=== PATIENT | male | born 1955 | race Caucasian/White ===

== ENCOUNTER 2016-12-21 11:16 | Inpatient (IN) | payer BC ==
[~2016-12-21] VITALS: Ht 177.8 cm; Wt 68.4 kg
[2016-12-21] MEDS ORDERED: SOD CHLORIDE 0.9% 500 ML IV STA (11:23)
[2016-12-21] MEDS ORDERED: ESOM40CA G-TUBE (11:40)
[2016-12-21] MEDS ORDERED: FAMO20TA18 GTB (11:41)
[2016-12-21] MEDS ORDERED: UDREG GTB (11:42)
[2016-12-21] MEDS ORDERED: LEVE500S9 GTB (11:42)
[2016-12-21] MEDS ORDERED: PROP40TA4 GTB (11:43)
[2016-12-21] MEDS ORDERED: LANT3I SC (11:43)
[2016-12-21] MEDS ORDERED: ZINC220C5 GTB (11:44)
[2016-12-21] MEDS ORDERED: ASCO500S2 GTB (11:44)
[2016-12-21] MEDS ORDERED: PHEN100O4 GTB (11:45)
--- NOTE | 2016-12-21 11:45 | ERA ---
ER Documentation Chief Complaint Date/Time DATE: 12/21/16 TIME: 11:31 Chief Complaint HPI 61-year-old male with a history of anoxic brain injury with chronic respiratory failure, trach and vent dependent, CKD, seizure disorder, diabetes, hypothyroidism sent from [facility] for elevated BUN and creatinine. The patient was evaluated at [facility] yesterday and discharged back to the facility. Due to his worsening BUN and creatinine elevation, he was sent here for further evaluation and admission. His primary care doctors are Dr. Bojorquez and Armando. The patient is nonverbal and is unable to give any further history. The history is taken from his EMS personnel , medical records and transfer summary. Per review of his records, his BUN was 106 and creatinine was 2.6. Earlier yesterday, his BUN was 100 and his creatinine was 2.2. He was also noted to have evidence of a UTI and started on Macrobid yesterday. Renal ultrasound was done and was unremarkable. ROS Review of systems are limited as the patient is nonverbal. Medications Home Meds Reported Medications Amino Acids/Protein Hydrolys (PRO-STAT LIQUID) 30 Ml Liquid.pkt, 30 ML GTB BID SUGAR FREE 12/21/16 Hydrocodone/Acetaminophen (Ravia 5-325 Tablet) 1 Each Tablet, 1 EACH GTB Q4H WHILE AWAKE Y for PAIN, TAB 12/21/16 Acetaminophen* (Acetaminophen* Susp) 160 Mg/5 Ml Oral.susp, 640 MG PO Q6 Y for PAIN AND OR ELEVATED TEMP, ML 12/21/16 Furosemide* (Lasix*) 20 Mg Tablet, 20 MG GTB DAILY, TAB 12/21/16 Folic Acid/Vitamin B Comp W-C (Nephrocaps Capsule) 1 Mg Capsule, 1 MG GTB DAILY , CAP 12/21/16 Prochlorperazine* (Prochlorperazine*) 5 Mg Tablet, 5 MG GTB Q6 Y for NAUSEA, TAB 12/21/16 Levothyroxine Sodium* (Levoxyl*) 25 Mcg Tablet, 25 MCG G-TUBE BEFORE BREAKFAST, #30 TAB 12/21/16 Arginine/Ascorbate Sod/Mis AC (Arginaid Powder) 1 Each Powd.pack, 1 EACH PO BID 12/21/16 Phenytoin* (Dilantin* Susp) 100 Mg/4 Ml Oral.susp, 300 MG GTB DAILY for 30 Days , BOTTLE 12/21/16 Zinc Sulfate* (Zinc Sulfate*) 220 Mg Cap, 220 MG GTB DAILY, CAP 12/21/16 Ascorbic Acid* (Vitamin C* Liq) 500 Mg/5 Ml Syrup, 500 MG GTB DAILY, ML 12/21/16 Insulin Glargine* (Lantus*) 100 Unit/Ml Soln, 18 UNIT SC QHS, #1 VIAL 12/21/16 Propranolol Hcl* (Propranolol Hcl*) 40 Mg Tablet, 40 MG GTB TID, TAB 12/21/16 Metoclopramide* (Reglan*) 10 Mg/10 Ml Soln, 5 MG GTB Q6, ML 12/21/16 Levetiracetam* (Keppra*) 500 Mg/5 Ml Solution, 500 MG GTB BID, BOTTLE 12/21/16 Famotidine* (Famotidine*) 20 Mg Tablet, 20 MG GTB DAILY, #30 TAB 12/21/16 Esomeprazole Mag Trihydrate (Nexium) 40 Mg Capsule.dr, 40 MG G-TUBE DAILY, #30 CAP 12/21/16 Allergies Allergies: Coded Allergies: No Known Allergy (Unverified , 12/21/16) PMhx/Soc History of Surgery: Yes (Tracheostomy placement, G-tube placement) Hx Neurological Disorder: Yes (Anoxic brain injury, convulsions) Hx Respiratory Disorders: Yes (Chronic respiratory failure with tracheostomy on vent) Hx Miscellaneous Medical Probl: Yes (Diabetes, hypothyroidism, CKD) Hx Substance Use: No Smoking Status: Former smoker FmHx Unable to obtain Physical Exam Vitals Vital Signs Date Time Temp Pulse Resp B/P Pulse Ox O2 Delivery O2 Flow Rate FiO2 12/21/16 16:25 98.1 108 12 152/84 100 Room Air 12/21/16 14:04 99.2 106 16 149/84 100 Room Air 12/21/16 12:30 108 23 130/78 100 Mechanical Ventilator 12/21/16 11:28 119 26 100 30 12/21/16 11:25 99.1 118 16 120/76 100 Physical Exam Const: No apparent distress, nonverbal, nontoxic Head: Atraumatic Eyes: Normal Conjunctiva ENT: Normal External Ears, Nose and Mouth. Neck: tracheostomy in place, on vent Resp: Clear to auscultation bilaterally, transmitted upper respiratory coarse sounds present Cardio: tachycardic, regular rhythm, no murmurs Abd: Soft, non tender, non distended. Normal bowel sounds Skin: No petechiae or rashes Back: NO lesions Ext: No cyanosis or edema. Muscle atrophy in all 4 extremities Neur: Awake, alert, nonverbal, does not follow commands Result Diagram: 12/21/16 1145 12/21/16 1145 Results 24 hrs Laboratory Tests Test 12/21/16 11:45 12/21/16 12:50 12/21/16 13:50 Activated Partial Thromboplast Time 32.8Sec Alanine Aminotransferase (ALT/SGPT) 77IU/L Albumin 3.6g/dl Albumin/Globulin Ratio 1.02 Alkaline Phosphatase 119IU/L Anion Gap 23 Aspartate Amino Transf (AST/SGOT) 46IU/L Basophils # 0.010^3/ul Basophils % 0.3% Blood Morphology Comment Blood Urea Nitrogen 104mg/dl Calcium Level 10.6mg/dl Carbon Dioxide Level 22mmol/L Chloride Level 112mmol/L Creatinine 2.21mg/dl Direct Bilirubin 0.00mg/dl Eosinophils # 0.610^3/ul Eosinophils % 4.5% Globulin 3.50g/dl Glucose Level 133mg/dl Hematocrit 27.9% Hemoglobin 9.4g/dl INR International Normalized Ratio 1.18 Indirect Bilirubin 0.1mg/dl Lactic Acid Level 2.3mmol/L 3.0mmol/L Lymphocytes # 1.510^3/ul Lymphocytes % 10.6% Mean Corpuscular Hemoglobin 31.1pg Mean Corpuscular Hemoglobin Concent 33.8g/dl Mean Corpuscular Volume 91.9fl Mean Platelet Volume 10.9fl Monocytes # 1.210^3/ul Monocytes % 8.7% Neutrophils # 10.610^3/ul Neutrophils % 75.9% Nucleated Red Blood Cells # 0.010^3/ul Nucleated Red Blood Cells % 0.0/100WBC Platelet Count 89542^3/UL Potassium Level 4.5mmol/L Prothrombin Time 15.1Sec Prothrombin Time Ratio 1.2 Red Blood Count 3.0310^6/ul Red Cell Distribution Width 16.6% Sodium Level 152mmol/L Total Bilirubin 0.1mg/dl Total Protein 7.1g/dl White Blood Count 14.010^3/ul Urine Bilirubin NEGATIVE Urine Clarity HAZY Urine Color LT. YELLOW Urine Glucose NEGATIVE% Urine Hemoglobin 3+ Urine Ketones NEGATIVE Urine Leukocyte Esterase 1+ Urine Microscopic RBC 10-25/HPF Urine Microscopic WBC 5-10/HPF Urine Nitrite NEGATIVE Urine Specific [place] 1.010 Urine Total Protein 2+ Urine Urobilinogen 0.2 E.U./dL Urine pH 7.0 Troponin I < 0.012ng/ml Current Medications Medications (Trade) Dose Ordered Sig/Linda Route PRN Reason Start Time Stop Time Status Last Admin Dose Admin Sodium Chloride (NS) 500 ml @ 500 mls/hr Q1H STAT IV 12/21/16 11:23 12/21/16 11:51 DC Sodium Chloride 1860 ml 1,860 ml BOLUS OVER 2 HOURS STAT IV* 12/21/16 11:49 12/21/16 11:59 DC 12/21/16 12:15 Ceftriaxone Sodium 50 ml @ 100 mls/hr ONCE STAT IVPB 12/21/16 11:49 12/21/16 12:18 DC 12/21/16 12:51 Sodium Chloride (NS) 1,000 ml @ 1,000 mls/hr Q1H STAT IV 12/21/16 15:02 12/21/16 16:01 DC 12/21/16 15:16 Ondansetron HCl (Zofran Inj) 4 mg ER BRIDGE PRN IV NAUSEA AND/OR VOMITING 12/21/16 17:00 12/22/16 16:59 Acetaminophen (Tylenol Tab) 650 mg ER BRIDGE PRN PO MILD PAIN/FEVER 12/21/16 17:00 12/22/16 16:59 Procedures/MDM EKG: Rate/Rhythm: Sinus tachycardia at 115 QRS, ST, T-waves: No changes consistent w/ acute ischemia Impression: No evidence of ischemia or arrhythmia Patient was sent for acute kidney injury. His vitals are consistent with sepsis given his recent diagnosis of UTI. A sepsis workup was started. Broad- spectrum IV antibiotics were given. 30 cc/kg of IV fluids were given. Initial lactate was elevated. Repeat lactate after IV fluid bolus was elevated. He was given an additional 1 L of IV fluids. There does not appear to be another source for his infection. Labs were notable for uremia and elevated creatinine. He also has hypernatremia, likely secondary to dehydration. Patient's infectious symptoms have not stabilized and the patient is at risk of rapid decompensation. The patient will be admitted for careful hydration, antibiotic therapy, and infectious source control. Severe Sepsis Assessment: Infectious Source: UTI End organ damage indicated by: Lactate > 2.0 mmol/L Singing Messenger > 2.0 Severe Sepsis Managment: Blood Cultures X 2 before broad spectrum antibiotics initiated within 3 hours of recognition. 30 ml/kg NS bolus Completed Initial Lactate: 2.3 Repeat Lactate 3 Critical Care: Time: 35 minutes Treatments/Evaluations: Emergent fluid management, while maintaining close respiratory support. Immediate broad spectrum antibiotic therapy. Simultaneous assessment for possible sources in order to direct therapy. Consideration for invasive and chemical support to prevent respiratory or cardiac collapse. Septic Shock Assessment (1 hour post 30 ml/kg fluid bolus): Hypotension (SBP < 90 or 40 mmHg drop, MAP < 65): No Lactic acid > 4.0 No Accepting Care Team: Current data and ongoing care discussed. Time: Time of admission Primary Provider: Patel Consulting: none Outstanding Data: Cultures Departure Diagnosis: Primary Impression: Severe sepsis Additional Impressions: Urinary tract infection Qualified Code: N39.0 - Urinary tract infection without hematuria, site unspecified Acute kidney injury superimposed on CKD Hypernatremia Chronic respiratory failure Qualified Code: J96.10 - Chronic respiratory failure, unspecified whether with hypoxia or hypercapnia Anemia Qualified Code: D64.9 - Anemia, unspecified type Condition: Serious STEVE BARRIGA MD Dec 21, 2016 11:45
[2016-12-21] MEDS ORDERED: ARGI1POW19 PO (11:47)
[2016-12-21] MEDS ORDERED: LEVO25TA50 G-TUBE (11:48)
[2016-12-21] MEDS ORDERED: SODIUM CHLORIDE 0.9% 1L BAG IV* STA (11:49)
[2016-12-21] MEDS ORDERED: CEFTRIAXONE 1 GM/50 ML (PMX) 50 ML IVPB STA (11:49)
[2016-12-21] MEDS ORDERED: PROC5TAB9 GTB (11:50)
[2016-12-21] MEDS ORDERED: FOLI1CAP GTB (11:51)
[2016-12-21] MEDS ORDERED: FURO-110 GTB (11:51)
[2016-12-21] MEDS ORDERED: ACET160O41 PO (11:54)
[2016-12-21] MEDS ORDERED: HYDR-906 GTB (11:55)
[2016-12-21] MEDS ORDERED: AMIN30LI GTB (11:59)
[2016-12-21 12:12] LABS: BASOPHILS % 0.3 % (0.0-2.0); EOSINOPHILS # 0.6 10^3/ul (0.0-0.5); EOSINOPHILS % 4.5 % (0.0-7.0); HEMATOCRIT 27.9 % (42.0-52.0); HEMOGLOBIN 9.4 g/dl (14.0-18.0); LYMPHOCYTES # 1.5 10^3/ul (0.8-2.9); LYMPHOCYTES % 10.6 % (15.0-51.0); MEAN CORPUSCULAR HEMOGLOBIN 31.1 pg (29.0-33.0); MEAN CORPUSCULAR HGB CONC 33.8 g/dl (32.0-37.0); MEAN CORPUSCULAR VOLUME 91.9 fl (82.0-101.0); MEAN PLATELET VOLUME 10.9 fl (7.4-10.4); MONOCYTE # 1.2 10^3/ul (0.3-0.9); MONOCYTES % 8.7 % (0.0-11.0); NEUTROPHIL # 10.6 10^3/ul (1.6-7.5); NEUTROPHILS % 75.9 % (39.0-77.0); PLATELET COUNT 306 10^3/UL (140-440); RED BLOOD COUNT 3.03 10^6/ul (4.70-6.10); RED CELL DISTRIBUTION WIDTH 16.6 % (11.5-14.5)
[2016-12-21 12:13] LABS: CONDITION 1; LH ANALYZER COMMENTS 1
--- NOTE | 2016-12-21 12:13 | RADRPT ---
PROCEDURE: CHEST 1VW CLINICAL INDICATION: Shortness of breath TECHNIQUE: Single frontal view of the chest was obtained COMPARISON: 09/08/2016 FINDINGS: Stable tracheostomy. Interval removal of right neck dialysis catheter. The cardiac size is normal. Aortic vascular calcifications are demonstrated. There is mild pulmonary vascular congestion. Bibasi lar atelectasis is decreased, especially on the right. The lungs are otherwise clear. No consolidati on, effusion, or pneumothorax. Mild degenerative changes of the visualized osseous structures are vi sualized. IMPRESSION: 1. Interval decreased bibasilar atelectasis with persistent mild left basilar atelectasis. 2. Atherosclerosis. 3. Stable tracheostomy. Interval removal of right permacath. RPTAT: JJ .Louis Cruz MD, Date Time Electronically viewed and signed by .Louis Cruz MD, on 12/21/2016 12:13 .A/
[2016-12-21 12:21] LABS: ALBUMIN 3.6 g/dl (3.3-4.9)
[2016-12-21 12:22] LABS: POTASSIUM 4.5 mmol/L (3.5-5.1)
[2016-12-21 12:23] LABS: INR 1.18; PROTIME 15.1 Sec (12.2-14.2); PT RATIO 1.2
[2016-12-21 12:24] LABS: ALBUMIN/GLOBULIN RATIO 1.02; BILIRUBIN,INDIRECT 0.1 mg/dl (0-1.1); BILIRUBIN,TOTAL 0.1 mg/dl (0.2-1.3); CREATININE 2.21 mg/dl (0.61-1.24); PARTIAL THROMBOPLASTIN TIME 32.8 Sec (25.0-35.0); TOTAL PROTEIN 7.1 g/dl (6.1-8.1)
[2016-12-21 12:25] LABS: CALCIUM 10.6 mg/dl (8.4-10.2)
[2016-12-21 13:20] LABS: ADD UMIC YES; URINE BILIRUBIN (Dip) NEGATIVE (NEGATIVE); URINE BLOOD (Dip) 3+ (NEGATIVE); URINE COLOR LT. YELLOW (YELLOW); URINE GLUCOSE (Dip) NEGATIVE (NEGATIVE); URINE KETONES (Dip) NEGATIVE (NEGATIVE); URINE LEUKOCYTE ESTERASE (Dip) 1+ (NEGATIVE); URINE NITRITE (Dip) NEGATIVE (NEGATIVE); URINE TOTAL PROTEIN (Dip) 2+ (NEGATIVE); URINE UROBILINOGEN (Dip) 0.2 E.U./dL (0.1-1.0)
[2016-12-21] MEDS ORDERED: SOD CHLORIDE 0.9% 1,000 ML IV STA (15:02)
[2016-12-21] MEDS ORDERED: ONDANSETRON 4 MG INJ IV PRN (17:00)
[2016-12-21] MEDS ORDERED: ACETAMINOPHEN 325 MG TAB PO PRN ×2 (17:00→19:00)
--- NOTE | 2016-12-21 17:50 | CONS ---
DATE OF ADMISSION: 12/21/2016 DATE OF CONSULTATION: 12/21/2016 TYPE OF CONSULTATION: Pulmonary REASON FOR CONSULTATION: Ventilator management. Thank you, , for this consultation. HISTORY OF PRESENT ILLNESS: This is a 61-year-old gentleman with history of anoxic brain injury, on mechanical ventilation, has had subjective fevers for the past few days, increasing shortness of br eath, this afternoon had elevated BUN and creatinine, requiring admission to [facility] for further evaluation. The patient was seen at [facility] yesterday, apparently w as discharged back to the custodial facility on Macrobid for presumed UTI. PAST MEDICAL HISTORY: As above. MEDICATIONS: Per chart. ALLERGIES: NONE KNOWN. SOCIAL HISTORY: Nonsmoker, no alcohol, no history of drug use. FAMILY HISTORY: Noncontributory. SYSTEMS REVIEW: A 12-point review of systems unable to perform. PHYSICAL EXAMINATION: GENERAL: Chronically ill appearing gentleman, appears comfortable at rest, no acute distress. VITAL SIGNS: Temperature 98, pulse is 108, blood pressure 152/80, on mechanical ventilation. NECK: Trach site clean and intact. CARDIAC: S1, S2, no added sounds or murmurs. CHEST: Diminished air entry bilaterally. ABDOMEN: Soft, nontender. No guarding or rebound. EXTREMITIES: No cyanosis, clubbing, edema. NEUROLOGIC: Generalized weakness. LABORATORIES: White count 14.3, hemoglobin 9.4, platelets 306. BUN 104, creatinine 2.21. INR 1.18 . Urinalysis positive for UTI. DIAGNOSTIC DATA: Chest x-ray was reviewed which shows improved bibasilar atelectasis. IMPRESSION: 1. Ventilator-dependent respiratory failure. 2. Anoxic encephalopathy. 3. Urinary tract infection with sepsis. 4. Dysphagia with G-tube. 5. Chronic encephalopathy. PLAN: The patient will need: 1. Broad-spectrum antibiotic coverage. 2. Volume resuscitation. 3. Pulmonary toilet. 4. Mechanical ventilation. 5. DVT and GI prophylaxis. Dictated By: EMEKA ROSSI/RIO Conf#: [id number] DID#: [id number]
[2016-12-21] MEDS ORDERED: 1/2 NS + KCL 20 MEQ 1,000 ML IV SCH (18:46)
[2016-12-21] MEDS ORDERED: ACETAMINOPHEN 160 MG/5ML CUP PO PRN (19:00)
[2016-12-21] MEDS ORDERED: ACETAMINOPHEN 650 MG SUPP PR PRN (19:00)
[2016-12-21] MEDS ORDERED: LORAZEPAM 2 MG INJ IV PRN (19:00)
[2016-12-21] MEDS ORDERED: ONDANSETRON 4 MG TAB PO PRN (19:00)
[2016-12-21] MEDS ORDERED: NACL 0.9% 3 ML SYG IV SCH (19:00)
[2016-12-21] MEDS ORDERED: HYDROCODONE/APAP (5/325) TAB GTB PRN (19:00)
[2016-12-21] MEDS ORDERED: PROCHLORPERAZINE 5 MG TAB GTB PRN (19:00)
[2016-12-21] MEDS ORDERED: NITROGLYCERIN (SL) 0.4 MG TAB SL PRN (19:00)
[2016-12-21] MEDS ORDERED: DEXTROSE 50% 50 ML SYRINGE IV PRN ×2 (19:30)
[2016-12-21] MEDS ORDERED: GLUCOSE GEL 15 GRAM TUBE PO PRN ×2 (19:30)
[2016-12-21] MEDS ORDERED: [UNRECOGNIZED DRUG - OTHER] XX ONE (19:30)
[2016-12-21] MEDS ORDERED: GLUCOSE GEL 15 GRAM TUBE BUCCAL PRN (19:30)
[2016-12-21] MEDS ORDERED: Discontinue Glyburide, Glipizide, and/or Glimepiride prior to starting Insulin XX ONE (19:30)
[2016-12-21] MEDS ORDERED: GLUCAGON 1 MG INJ IM PRN (19:30)
--- NOTE | 2016-12-21 19:58 | HP ---
DATE OF ADMISSION: 12/21/2016 CONSULTANTS: 1. Dr. Hollie Ford. 2. James Ivey MD 3. Aki Rey MD CHIEF COMPLAINT: Patient great amount of information was obtained from the ER physician and the not es. The patient is trached and PEG and has chronic encephalopathy and is not able to provide any in formation. REASON FOR ADMISSION: Renal insufficiency. HISTORY OF PRESENT ILLNESS: This is a 61-year-old gentleman with past medical history of anoxic bra in injury, chronic respiratory failure, tracheostomy and vent dependent, chronic kidney disease, sei zure disorder, diabetes mellitus, dyslipidemia, hypothyroidism, sent from [facility] was found to have acute renal insufficiency, was found to be severely dehydrated with elevate d BUN. The patient was evaluated at [facility] yesterday with discharge back to facility . Due to worsening of BUN and creatinine, the patient was sent here for further evaluation and admi ssion. Patient is nonverbal and encephalopathy with an anoxic brain injury and is not able to provi de any information. The history was taken from EMS and ER notes and transfer summary. The patient was found to have BUN of 106, creatinine 2.6. His BUN was 100 and his creatinine was 2.2 yesterday on 12/20/2016. The patient also noted to have evidence of UTI, started on Macrobid as an outpatient . Renal ultrasound was done and was unremarkable. PAST MEDICAL AND SURGICAL HISTORY: As above per HPI. MEDICATIONS: 1. Tylenol. 2. Pro-Stat. 3. Arginaid powder. 4. Vitamin C. 5. Nexium. 6. Famotidine. 7. Nephrocaps. 8. Lasix. 9. [place]. 10. Lantus. 11. Keppra. 12. Levoxyl. 13. Reglan. 14. Dilantin suspension. 15. Prochlorperazine. 16. Propranolol. 17. Zinc sulfate. ALLERGIES: NO KNOWN DRUG ALLERGIES. FAMILY HISTORY: Unknown. SOCIAL HISTORY: Resides at assisted facility. Former smoker. Alcohol and drug abuse is unk nown. REVIEW OF SYSTEMS: Unobtainable since patient has anoxic brain injury and is not able to provide an y information. PHYSICAL EXAMINATION: VITAL SIGNS: Temperature 98.1, pulse 108, respiration 12, blood pressure 152/84, oxygen 100% on the vent on FIO2 of 30%. GENERAL APPEARANCE: Patient is lying in the bed. He is awake and alert, although not oriented. He is aphasic and not able to follow commands. EYES AND ENT: Conjunctivae and lids are normal. Pupils are normal. Extraocular examination is not obtainable. The patient is encephalopathic. NECK: Supple. Trachea is in place. LUNGS: Decreased breath sounds bilateral lower lung field. CARDIOVASCULAR: Normal S1, S2. Regular rhythm and rate. No murmur, no bruits, no edema. Peripher al pulses, radial pulses palpable. Cap refill is normal. CHEST: Normal expansion of thorax during inspiration. GASTROINTESTINAL: There is a PEG tube in place. The surgical site is dry and clean. Bowel sounds present. No guarding, no rebound. GENITOURINARY: Deferred. MUSCULOSKELETAL: Severe muscle wasting in bilateral upper and lower extremities. Both upper and lo wer extremities are flaccid. LABORATORY WORK AND IMAGING: WBC 14, hemoglobin 9.4, hematocrit 27.9, platelet 306. Sodium 152, po tassium 4.5, chloride 112, bicarbonate 22, BUN 104, creatinine 2.21, anion gap 23, lactic acid 2.3 a nd 3.0, calcium 10.6, total bilirubin 0.1, AST 46, ALT 77. Troponin negative. Urinalysis positive 1 leukocyte esterase, RBC 10 to 25, WBC 5 to 10, hemoglobin positive 3, protein positive 2. WBC 14, hemoglobin 9.5, hematocrit 27.9, platelet 306. ASSESSMENT AND PLAN: 1. Sepsis. 2. Acute renal disease secondary to severe dehydration. 3. Severe dehydration. 4. Anemia of chronic disease. 5. Urinary tract infection. 6. Sepsis secondary to urinary tract infection. 7. Hypernatremia. 8. Hypercalcemia. 9. Ventilator-dependent respiratory failure. 10. Status post percutaneous endoscopic gastrostomy tube feeding. 11. History of anoxic brain injury. PLAN: The patient will be admitted to telemetry. We will start the patient on aggressive IV fluid. Nephrology has been consulted. Will place the patient on broad-spectrum IV antibiotics via Zosyn and follow up urine culture and se nsitivity and treat accordingly. We will follow up renal panel and electrolytes in a.m. Refrain from using any nephrotoxic medications. In regards to the patient's respiratory status, pulmonology has been consulted. He will manage the mechanical ventilation. Seizure activity. We will continue patient's home medication. History of hypothyroidism. Continue levothyroxine. Essential hypertension. Continue propranolol. Patient has a history of diabetes mellitus. Will co ntinue Lantus. Place the patient on insulin sliding scale. Place the patient on Diabetisource via G-tube. We will continue to monitor patient closely. Further recommendations, management and treatment as p er clinical course. Total amount of time was spent for evaluation of patient and admission workup, 40 minutes. Dictated By: KENAN MITCHELL/RIO Conf#: [id number] DID#: [id number]
[2016-12-21] MEDS ORDERED: NON-FORMULARY/PATIENT OWN MED (Amino Acids/Protein Hydrolys (Pro-Stat Liquid) 30 ML) GTB SCH (21:00)
[2016-12-21] MEDS ORDERED: NON-FORMULARY/PATIENT OWN MED (Arginine/Ascorbate Sod/Vite AC (Arginaid Powder) 1 EACH) PO SCH (21:00)
[2016-12-21] MEDS ORDERED: PROPRANOLOL 40 MG TAB GTB SCH (21:00)
[2016-12-21 21:36] VITALS: TEMP 98.1
[2016-12-21 22:00] VITALS: BP 146/74; PULSE 111; RESP 21; Ht 177.8 cm; Wt 68.4 kg
[2016-12-21 22:10] VITALS: RESP 17
[2016-12-21 22:19] VITALS: PULSE 113
[2016-12-21] MEDS: ASCORBIC ACID 500 MG TAB PO SCH (22:37)
[2016-12-21] MEDS: LEVETIRACETAM (100 MG/ML) 5ML CUP GTB SCH (22:37)
[2016-12-21] MEDS: INSULIN ASPART [NOVOLOG] 3 ML PEN SC SCH (22:42)
[2016-12-21] MEDS: PIPER-TAZO 3.375 GM IV (PMX) 100 ML IVPB SCH (22:43)
[2016-12-21] MEDS: PROPRANOLOL 20 MG TAB GTB SCH (23:30)
[2016-12-22] VITALS (24 sets, daily range): BP systolic 127–148; BP diastolic 70–84; PULSE 95–112; RESP 16–25
[2016-12-22] MEDS: INSULIN GLARGINE [LANtus] 3 ML PEN SC SCH ×2 (00:01→21:03)
[2016-12-22] MEDS: INSULIN ASPART [NOVOLOG] 3 ML PEN SC SCH ×6 (00:02→21:00)
[2016-12-22] MEDS: METOCLOPRAMIDE (1 MG/ML) 10 ML CUP GTB SCH ×4 (00:06→17:15)
[2016-12-22] MEDS: LANSOPRAZOLE 30 MG CAP GTB SCH (05:28)
[2016-12-22] MEDS: PIPER-TAZO 3.375 GM IV (PMX) 100 ML IVPB SCH ×3 (05:29→22:17)
[2016-12-22] MEDS: LEVOTHYROXINE 25 MCG TAB GTB SCH (06:38)
[2016-12-22 07:14] LABS: BASOPHILS % 0.4 % (0.0-2.0); EOSINOPHILS # 0.6 10^3/ul (0.0-0.5); EOSINOPHILS % 6.3 % (0.0-7.0); HEMATOCRIT 22.3 % (42.0-52.0); HEMOGLOBIN 7.7 g/dl (14.0-18.0); LYMPHOCYTES % 11.6 % (15.0-51.0); MEAN CORPUSCULAR HEMOGLOBIN 32.1 pg (29.0-33.0); MEAN CORPUSCULAR HGB CONC 34.6 g/dl (32.0-37.0); MEAN CORPUSCULAR VOLUME 92.8 fl (82.0-101.0); MEAN PLATELET VOLUME 10.6 fl (7.4-10.4); MONOCYTE # 0.8 10^3/ul (0.3-0.9); MONOCYTES % 9.3 % (0.0-11.0); NEUTROPHIL # 6.4 10^3/ul (1.6-7.5); NEUTROPHILS % 72.4 % (39.0-77.0); PLATELET COUNT 219 10^3/UL (140-440); RED BLOOD COUNT 2.41 10^6/ul (4.70-6.10); UNCORRECTED WBC 8.9 10^3/ul (4.8-10.8); WHITE BLOOD COUNT 8.9 10^3/ul (4.8-10.8)
[2016-12-22 07:18] LABS: POTASSIUM 4.5 mmol/L (3.5-5.1)
[2016-12-22 07:20] LABS: CREATININE 1.95 mg/dl (0.61-1.24)
[2016-12-22 07:21] LABS: CALCIUM 9.5 mg/dl (8.4-10.2); PHOSPHORUS 4.6 mg/dl (2.5-4.9)
[2016-12-22 07:25] LABS: CONDITION 1; LH ANALYZER COMMENTS 1
[2016-12-22 08:22] LABS: IRON 72 ug/dl (35-150)
[2016-12-22 08:31] LABS: TOTAL IRON BINDING CAPACITY 171 ug/dl (241-421)
[2016-12-22] MEDS: MULTIVIT/CA CARB/B CMPLX/FA TAB PO SCH (08:34)
[2016-12-22] MEDS: ZINC SULFATE 220 MG CAP GTB SCH (08:34)
[2016-12-22] MEDS: PROPRANOLOL 20 MG TAB GTB SCH ×3 (08:34→21:01)
[2016-12-22] MEDS: LEVETIRACETAM (100 MG/ML) 5ML CUP GTB SCH ×2 (08:34→21:01)
[2016-12-22] MEDS: ASCORBIC ACID 500 MG TAB PO SCH (08:34)
[2016-12-22] MEDS: FAMOTIDINE 20 MG TAB GTB SCH (08:35)
[2016-12-22] MEDS: PHENYTOIN (100 MG/4 ML) CUP GTB SCH (08:35)
[2016-12-22] MEDS: ENOXAPARIN 30 MG/0.3 ML SYG SC SCH (08:43)
[2016-12-22] MEDS ORDERED: FUROSEMIDE 20 MG TAB GTB SCH (09:00)
--- NOTE | 2016-12-22 09:18 | RADRPT ---
PROCEDURE: XR Chest. CLINICAL INDICATION: Respiratory failure TECHNIQUE: Single frontal chest x-ray. COMPARISON: 12/21/2016 FINDINGS: Tracheostomy tube remains in place. Atelectasis / scarring is again noted at the left lung base. N o pneumothorax or significant pleural effusion is identified. Cardiomediastinal silhouette is withi n normal limits. Aortic atherosclerotic calcification is noted. The osseous structures are unremar kable. IMPRESSION: 1. Left lung base atelectasis is again noted, grossly stable. 2. Tracheostomy tube remains in place. 3. Aortic atherosclerotic calcification is noted. RPTAT: QQ .Haseeb De La Vega MD, MD Date Time Electronically viewed and signed by .Haseeb De La Vega MD, on 12/22/2016 09:17 .R/
[2016-12-22 09:33] LABS: Allen Test ACCEPTAB; Arterial COHb 0.3 % (0.0-3.0); Arterial Fraction of Oxyhgb 97.8 % (93.0-99.0); Arterial HCO3 18.7 mmol/L (22.0-26.0); Arterial MetHb 0.3 % (0.0-1.5); Arterial Total Hemglobin 7.9 g/dl (12.0-18.0); MODE VENT - AC
--- NOTE | 2016-12-22 10:53 | CONS ---
DATE OF ADMISSION: 12/21/2016 DATE OF CONSULTATION: 12/22/2016 TYPE OF CONSULTATION: Nephrology. REASON FOR CONSULTATION: Acute kidney injury. PHYSICIAN REQUESTING CONSULT: Dr. Sweeney HISTORY OF PRESENT ILLNESS: This is a 61-year-old male with a past medical history of ventilator-de pendent respiratory failure, a history of dysphagia, status post PEG, a history of anoxic brain inju ry, a history of chronic kidney disease stage IV, previously dialysis dependent, a history of seizur e disorder, diabetes, dyslipidemia, and hypothyroidism, who [facility] from [place] [facility] due to worsening renal failure. The patient was recently trans ferred to [facility] due to worsening renal function. The patient, however, was returned back to [facility] and diagnosed with a UTI and was placed on antibiotic therapy. The patient; however, today on repeat laboratory data showed worsening BUN and creatinine. As a result , the patient was transferred to [facility] for evaluation. Upon arrival to the e mergency room, the patient was noted to be tachycardic. Laboratory data drawn showed a white count of 14,000. The patient was also noted to have a BUN of 104, creatinine 2.2. In the emergency room a chest x-ray was also obtained, which showed atelectasis at the lung base. In the emergency room t he patient was diagnosed with severe sepsis secondary to a urinary tract infection and he was treate d with IV fluids, antibiotics and admitted up to telemetry for evaluation. Overnight the patient wa s noted to be clinically stable. There were no reports of hemoptysis, hematemesis or hematochezia. Upon my evaluation the patient at this time is currently nonverbal, in no apparent distress. No oth er acute events noted. PAST MEDICAL HISTORY: As stated above, a history of ventilator-dependent respiratory failure, a his tory of anoxic brain injury, a history of dysphagia, status post PEG, a history of diabetes, a histo ry of chronic kidney disease stage IV, a history of seizure disorder, a history of dyslipidemia, a h istory of hypothyroidism. PAST SURGICAL HISTORY: Status post trach, status post PEG, status post Perm-A-Cath placement and re moval. MEDICATIONS: The patient's medications have been reviewed. ALLERGIES: NO KNOWN DRUG ALLERGIES. FAMILY HISTORY: No family history of kidney disease or heart disease. SOCIAL HISTORY: Resides in a subacute facility. REVIEW OF SYSTEMS: Unable to do an adequate review of systems as the patient is obtunded. Pertinen t positives were obtained by reviewing medical records, speaking to the hospital staff, as stated in the HPI, otherwise negative. PHYSICAL EXAMINATION: VITAL SIGNS: Blood pressure is currently 145/77, respirations 20, pulse 101, temperature 98.0. HEENT: Head is normocephalic. NECK: Supple. HEART: Regular rate. LUNGS: Showed diminished breath sounds at the base. ABDOMEN: Soft, nontender to palpation. No rebound or guarding. EXTREMITIES: Negative for clubbing or cyanosis. No edema. DERMATOLOGIC: No rashes. MUSCULOSKELETAL: Have no joint effusion. NEUROLOGIC: No change in exam. MEDICATIONS: The patient's medications were reviewed. LABORATORY DATA: Shows sodium 151, potassium 4.5, chloride 116, bicarbonate 20, BUN 79, creatinine 1.95. White count 8.9, hemoglobin 7.7, hematocrit 22.3, platelet count is 219. Urinalysis shows 10 to 25 RBCs, 5 to 10 WBCs. ASSESSMENT AND PLAN: This is a 61-year-old male who presents with: 1. Nonoliguric acute kidney injury on top of chronic kidney disease stage IV, with a previous basel ine creatinine around 2 mg/dL. Etiology of current acute kidney injury is likely secondary to hemod ynamics, septic acute kidney injury. The patient's urinalysis shows evidence of pyuria, hematuria a nd proteinuria, possibly due to urinary infection. The patient's renal function did improve with IV hydration. Plan at this point is to repeat a UA with microanalysis. Will check urine electrolytes . Will calculate a FENa (fractional excretion of urea). Will also get a renal ultrasound to rule o ut obstruction. Will otherwise continue supportive care, renally dose meds, and avoid nephrotoxins. 2. Hypernatremia. The patient has a free water deficit of approximately 2 liters. Will start the patient is on free water flushes at 200 mL q.4h. 3. Metabolic acidosis secondary to acute kidney injury. Plan is to monitor bicarbonate levels. No need for bicarbonate therapy at this time. 4. Anemia. The patient had a drop in her hemoglobin. Will recheck H and H levels, check an iron p katharine, check stool for occult blood. Will transfuse if hemoglobin levels continue to decline. Will also give the patient 1 dose of Epogen. 5. Mineral bone disorder. Will monitor calcium and phosphorus levels. 6. Severe sepsis secondary to a possible urinary tract infection. The patient is on broad spectrum antibiotics. Will continue. Will follow up blood cultures. Will follow up with infectious disease for evaluation. 7. Ventilator-dependent respiratory failure. Vent settings have been reviewed. Will follow up [facility] chain link fence installer, Dr. Ivey, for further recommendations. 8. Dysphagia. Status post PEG. Will continue tube feedings. 9. Diabetes. Continue Accu-Cheks and insulin sliding scale. 10. Tachycardia. Etiology is likely secondary to sepsis. Will continue to monitor. Consider card iology evaluation. 11. Chronic encephalopathy secondary to anoxic brain injury. Will continue to monitor. 12. Seizure disorder. Continue the current medications. Continue Keppra. Continue Dilantin. 13. Hypothyroidism. Will continue Synthroid. 14. Gastrointestinal and deep venous thrombosis prophylaxis. Will continue Prevacid, Lovenox, and sequential leg squeezers. Please note, I spoke with the patient's family up to 20 minutes, discussing code status. The patien t is FULL CODE. Dictated By: JESSE ARMSTRONG/RIO Conf#: [id number] DID#: [id number]
[2016-12-22 11:17] LABS: ADD UMIC YES; URINE BILIRUBIN (Dip) NEGATIVE (NEGATIVE); URINE BLOOD (Dip) 1+ (NEGATIVE); URINE COLOR LT. YELLOW (YELLOW); URINE GLUCOSE (Dip) NEGATIVE (NEGATIVE); URINE KETONES (Dip) NEGATIVE (NEGATIVE); URINE LEUKOCYTE ESTERASE (Dip) 1+ (NEGATIVE); URINE NITRITE (Dip) NEGATIVE (NEGATIVE); URINE TOTAL PROTEIN (Dip) 1+ (NEGATIVE); URINE UROBILINOGEN (Dip) 0.2 E.U./dL (0.1-1.0)
--- NOTE | 2016-12-22 11:19 | CONS ---
Date/Time of Note Date/Time of Note DATE: 12/22/16 TIME: 11:15 Assessment/Plan Assessment/Plan Additional Assessment/Plan Current ventilator settings; assist control of 16, tidal volume 600, PEEP of 5, 30% FiO2. Assessment and recommendations; 1. Chronic respiratory failure ventilator dependent. Next 2. Severe anoxic encephalopathy. Next 3. Stable seizure disorder. Next 4. Prerenal azotemia with intravascular volume depletion. 5. Based upon chest x-ray currently no evidence of any congestive heart failure. 6. Diabetes next 7. Hypo-thyroidism next 8. Patient mildly alkalotic on current ventilator settings. Discontinue any diuretics. Continue half normal saline as well as free water via G tube. Dr. Roberts has seen the patient for nephrology consult, his input is appreciated. Ventilator settings have been adjusted, tidal volume has been decreased to 500. Currently there is no evidence of any infective process. However the patient does have positive blood cultures gram-positive cocci in clusters possibly a contaminant. ID of the organism is awaited. Continue Zosyn for now. Consultation Date/Type/Reason Admit Date/Time Dec 21, 2016 at 16:40 Initial Consult Date Reason for Consultation Patient condition is stable. Awake but remains unresponsive due to anoxic enthesopathy. Remains ventilator dependent via tracheostomy. Patient has remained hemodynamically stable. General examination; middle-aged man, awake currently in no distress. Exam/Review of Systems Vital Signs Vitals Vital Signs Date Time Temp Pulse Resp B/P Pulse Ox O2 Delivery O2 Flow Rate FiO2 12/22/16 10:05 95 19 100 30 12/22/16 07:42 98.0 145/77 12/21/16 22:00 Mechanical Ventilator Intake and Output 12/21/16 12/21/16 12/22/16 15:00 23:00 07:00 Intake Total 2860 ml 1350 ml Output Total 1000 ml Balance 2860 ml 350 ml Exam HEENT examination; supple neck, no JVD. No lymphadenopathy. Tracheostomy in place with clean insertion site. Pupils are midsize reactive to light bilaterally. No neck masses. No thyromegaly. Chest examination; clear to auscultation bilaterally. S1-S2 audible, no murmurs. Regular rhythm. Abdomen examination; no distention. PEG tube in place. Bowel sounds audible. No organomegaly. Extremity examination; no peripheral edema. Pulses 1+ bilaterally. Patient has severe contractures involving all 4 extremities. LINEMAN examination; patient is awake but does not follow any commands. Results Result Diagram: 12/22/16 0540 12/22/16 0540 Results 24 hrs Laboratory Tests Test 12/21/16 11:45 12/21/16 12:50 12/21/16 13:50 12/21/16 20:45 Activated Partial Thromboplast Time 32.8 Alanine Aminotransferase (ALT/SGPT) 77 H Albumin 3.6 Albumin/Globulin Ratio 1.02 Alkaline Phosphatase 119 Anion Gap 23 H Aspartate Amino Transf (AST/SGOT) 46 Basophils # 0.0 Basophils % 0.3 Blood Morphology Comment Blood Urea Nitrogen 104 H Calcium Level 10.6 H Carbon Dioxide Level 22 Chloride Level 112 H Creatinine 2.21 H Direct Bilirubin 0.00 Eosinophils # 0.6 H Eosinophils % 4.5 Globulin 3.50 H Glucose Level 133 Hematocrit 27.9 L Hemoglobin 9.4 L INR International Normalized Ratio 1.18 Indirect Bilirubin 0.1 Lactic Acid Level 2.3 H 3.0 H 1.4 Lymphocytes # 1.5 Lymphocytes % 10.6 L Mean Corpuscular Hemoglobin 31.1 Mean Corpuscular Hemoglobin Concent 33.8 Mean Corpuscular Volume 91.9 Mean Platelet Volume 10.9 H Monocytes # 1.2 H Monocytes % 8.7 Neutrophils # 10.6 H Neutrophils % 75.9 Nucleated Red Blood Cells # 0.0 Nucleated Red Blood Cells % 0.0 Platelet Count 306 Potassium Level 4.5 Prothrombin Time 15.1 H Prothrombin Time Ratio 1.2 Red Blood Count 3.03 L Red Cell Distribution Width 16.6 H Sodium Level 152 H Total Bilirubin 0.1 L Total Protein 7.1 White Blood Count 14.0 H Urine Bilirubin NEGATIVE Urine Clarity HAZY Urine Color LT. YELLOW Urine Glucose NEGATIVE Urine Hemoglobin 3+ H Urine Ketones NEGATIVE Urine Leukocyte Esterase 1+ H Urine Microscopic RBC 10-25 Urine Microscopic WBC 5-10 Urine Nitrite NEGATIVE Urine Specific [place] 1.010 Urine Total Protein 2+ H Urine Urobilinogen 0.2 E.U./dL Urine pH 7.0 Troponin I < 0.012 Test 12/21/16 22:40 12/21/16 22:41 12/21/16 23:58 12/22/16 00:43 Lactic Acid Level 1.2 1.3 Bedside Glucose 131 134 Test 12/22/16 05:33 2/9/17 05:40 12/22/16 07:00 12/22/16 07:19 Bedside Glucose 121 125 Anion Gap 20 H Basophils # 0.0 Basophils % 0.4 Blood Morphology Comment Blood Urea Nitrogen 79 H Calcium Level 9.5 Carbon Dioxide Level 20 L Chloride Level 116 H Creatinine 1.95 H Eosinophils # 0.6 H Eosinophils % 6.3 Ferritin 1200.0 H Glucose Level 111 Hematocrit 22.3 #L Hemoglobin 7.7 L Iron Level 72 Lymphocytes # 1.0 Lymphocytes % 11.6 L Magnesium Level 2.0 Mean Corpuscular Hemoglobin 32.1 Mean Corpuscular Hemoglobin Concent 34.6 Mean Corpuscular Volume 92.8 Mean Platelet Volume 10.6 H Monocytes # 0.8 Monocytes % 9.3 Neutrophils # 6.4 Neutrophils % 72.4 Nucleated Red Blood Cells # 0.0 Nucleated Red Blood Cells % 0.0 Percent Iron Saturation 42 Phosphorus Level 4.6 Platelet Count 219 # Potassium Level 4.5 Red Blood Count 2.41 #L Red Cell Distribution Width 17.0 H Sodium Level 151 H Total Iron Binding Capacity 171 L White Blood Count 8.9 # Arterial Blood HCO3 18.7 L Arterial Blood Base Excess -5.0 L Arterial Blood Oxygen Saturation 98.4 H Santy Test ACCEPTAB Arterial Blood Gas Puncture Site Right Radial Arterial Blood Carboxyhemoglobin 0.3 Arterial Blood Date Drawn 12/22/2016 9:10:53 AM Arterial Blood Methemoglobin 0.3 Arterial Blood pCO2 (Temp correct) 29.4 L Arterial Blood pH (Temp corrected) 7.422 Arterial Blood pO2 (Temp corrected) 155.4 H Blood Gas A-a O2 Differential 24.0 Blood Gas Actual Respiration Rate 16 Blood Gas Low PEEP Setting 5.0 Blood Gas Modality VENT - AC Blood Gas Notified Time 12/22/2016 9:33:12 AM Blood Gas Notified Whom JLD Blood Gas Respiration Rate 16.0 Blood Gas Specimen Source Blood arterial Blood Gas Temperature 37.0 Blood Gas Tidal Volume 600.0 FiO2 30.0 Oxyhemoglobin Percent 97.8 Total Hemoglobin 7.9 L Medications Medications Current Medications Piperacillin Sod/ Tazobactam Sod (Zosyn 3.375gm/ 100 ml (Pmx)) 100 ml @ 200 mls /hr Q8 IVPB Last administered on 12/22/16t 05:29; Admin Dose 200 MLS/HR; Start 12/21/16 at 22:00 Lorazepam (Ativan) 0.5 mg Q6H PRN IV ANXIETY; Start 12/21/16 at 19:00 Ondansetron HCl (Zofran Tab) 4 mg Q6H PRN PO NAUSEA AND/OR VOMITING; Start 12/21 at 19:00 Nitroglycerin (Nitroglycerin (Sl Tab) 0.4 Mg) 1 tab Q5M PRN SL CHEST PAIN; Start 12/21/16 at 19:00 Acetaminophen (Tylenol Tab) 650 mg Q6H PRN PO PAIN LEVEL 1-3 OR FEVER; Start at 19:00 Acetaminophen (Tylenol Supp) 650 mg Q6H PRN [place] PAIN LEVEL 1-3 OR FEVER; Start 12/21/16 at 19:00 Enoxaparin Sodium (Lovenox) 30 mg DAILY SC Last administered on 12/22/16 08:43 ; Admin Dose 30 MG; Start 12/22/16 at 09:00 Ascorbic Acid (Vitamin C) 500 mg DAILY PO Last administered on 12/22/16 08:34; Admin Dose 500 MG; Start 12/21/16 at 19:30 Famotidine (Pepcid) 20 mg DAILY GTB Last administered on 12/22/16 08:35; Admin Dose 20 MG; Start 12/22/16 at 09:00 Insulin Glargine (Lantus) 12 unit QHS SC Last administered on 12/22/16 00:01; Admin Dose 12 UNIT; Start 12/21/16 at 21:00 Levetiracetam (Keppra Liquid) 500 mg BID GTB Last administered on 12/22/16 08: 34; Admin Dose 500 MG; Start 12/21/16 at 21:00 Metoclopramide HCl (Reglan Liq) 5 mg Q6 GTB Last administered on 12/22/16 05:29 ; Admin Dose 5 MG; Start 12/22/16 at 00:00 Phenytoin (Dilantin Susp Cup) 300 mg DAILY GTB Last administered on 12/22/16 08 :35; Admin Dose 300 MG; Start 12/22/16 at 09:00 Prochlorperazine (Compazine) 5 mg Q6 PRN GTB NAUSEA; Start 12/21/16 at 19:00 Zinc Sulfate (Zinc Sulfate) 220 mg DAILY GTB Last administered on 12/22/16 08: 34; Admin Dose 220 MG; Start 12/22/16 at 09:00 Lansoprazole (Prevacid) 30 mg DAILY@06 GTB Last administered on 12/22/16 05:28 ; Admin Dose 30 MG; Start 12/22/16 at 06:00 Multivit/Ca Carb/ B Cmplx/FA/Prenat (Lou-Mis) 1 tab DAILY PO Last administered on 12/22/16 08:34; Admin Dose 1 TAB; Start 12/22/16 at 09:00 Insulin Aspart (Novolog Insulin Pen) NOVOLOG *MILD* ALGORI... Q4 SC ; Start 12/21 at 21:00 Miscellaneous Information 1 ea NOTE XX ; Start 12/21/16 at 19:30 Glucose (Glutose) 15 gm Q15M PRN PO DECREASED GLUCOSE; Start 12/21/16 at 19:30 Glucose (Glutose) 22.5 gm Q15M PRN PO DECREASED GLUCOSE; Start 12/21/16 at 19:30 Dextrose (D50w Syringe) 25 ml Q15M PRN IV DECREASED GLUCOSE; Start 12/21/16 at 19:30 Dextrose (D50w Syringe) 50 ml Q15M PRN IV DECREASED GLUCOSE; Start 12/21/16 at 19:30 Glucagon (Glucagen) 1 mg Q15M PRN IM DECREASED GLUCOSE; Start 12/21/16 at 19:30 Glucose (Glutose) 15 gm Q15M PRN BUCCAL DECREASED GLUCOSE; Start 12/21/16 at 19: 30 Propranolol HCl (Inderal) 20 mg TID GTB Last administered on 12/22/16 08:34; Admin Dose 20 MG; Start 12/21/16 at 23:28 Influenza Virus Vaccine (Fluzone) 0.5 ml ONCE ONCE IM* ; Start 12/24/16 at 09:00 ; Stop 12/24/16 at 09:01 STEVEN CUETO Dec 22, 2016 11:19
[2016-12-22 11:26] LABS: BACTERIA,URINE OCCASIONAL
[2016-12-22 12:11] LABS: HEMATOCRIT 24.6 % (42.0-52.0); HEMOGLOBIN 7.6 g/dl (14.0-18.0)
--- NOTE | 2016-12-22 14:36 | RADRPT ---
PROCEDURE: US KIDNEYS AND BLADDER CLINICAL INDICATION: Renal insufficiency TECHNIQUE: Sonographic evaluation of the kidneys and bladder was performed using a curved array tr ansducer. COMPARISON: None. FINDINGS: Right kidney measures 4.5 cm in length. Left kidney measures 12.8 cm in length. Moderate bilateral cortical thinning and echogenicity suggestive of medical renal disease. No hydronephrosis bilaterally. A simple cyst is seen in the right kidney measuring 3.6 cm. Nonspec ific hyperechoic mass seen in the superior pole of the left kidney measuring 2.6 cm. The incompletely distended bladder is grossly unremarkable. Bilateral ureteral jets are seen. IMPRESSION: Moderate bilateral cortical thinning and echogenicity suggestive of medical renal disease. No hydro nephrosis. Nonspecific hyperechoic mass seen in the superior pole of the left kidney measuring 2.6 cm may repr esent an angiomyolipoma. Considering multiphasic CT scan with and without contrast to further evalu ate.. RPTAT:PP .Ezra Jaramillo MD, MD Date Time Electronically viewed and signed by .Ezra Jaramillo MD, on 12/22/2016 14:36 .V/
[2016-12-22 14:47] LABS: BARBITURATES NEGATIVE (NEGATIVE); BENZODIAZEPINES NEGATIVE (NEGATIVE); CANNABINOIDS NEGATIVE (NEGATIVE); COCAINE NEGATIVE (NEGATIVE); OPIATES NEGATIVE (NEGATIVE)
[2016-12-22] MEDS ORDERED: EPOETIN 10000 UNITS/ML (NON ESRD/NON ONCOLOGY) SC ONE (17:00)
[2016-12-22] MEDS ORDERED: VANCOMYCIN IV PER PHARMACY XX SCH (17:30)
--- NOTE | 2016-12-22 17:37 | PN ---
DATE: 12/22/2016 SUBJECTIVE: No acute changes. The patient is lying comfortably in bed. He is awake, noncommunicat alessandro. Afebrile. WBC today 8.9, platelets 219; no shift, no bands. BUN 79, creatinine 1.95. INDWELLINGS: Trach, PEG, Israle. MICROBIOLOGY: Blood culture growing gram-positive cocci in cluster, 1 out 2 sets. DIAGNOSTICS: Chest x-ray on admission revealed decreased bilateral atelectasis. A renal ultrasound revealed no hydronephrosis. ANTIMICROBIALS: The patient is on Zosyn. ALLERGIES: NONE. PHYSICAL EXAMINATION GENERAL: This is a chronically ill-appearing, middle-aged, [place] man who is lying comfortably in bed. HEENT: Head atraumatic, normocephalic. Sclerae are anicteric. Buccal mucosa dry. NECK: Supple. Tracheostomy present. CHEST: Rise symmetrical. Breath sounds diminished to bases. HEART: S1, S2. ABDOMEN: Soft. Bowel tones present. ASSESSMENT 1. Sepsis, likely secondary to urinary tract infection. 2. Urinary tract infection, per UA. 3. Gram-positive cocci bacteremia, rule out contaminant. 4. Anoxic encephalopathy. 5. Chronic respiratory failure. 6. Acute renal failure on chronic kidney disease. PLAN: Continue Zosyn, start vancomycin. Repeat blood cultures. Monitor renal function closely. F ty recommendations of consultants. Dictated By: KODAK CORTEZ ACTUARIAL TRAINEE for OTTO WHITE MD NI/NTS Conf#: [id number] DID#: [id number]
[2016-12-22] MEDS ORDERED: VANCOMYCIN 1.25 GM in SOD CHLORIDE 0.9% 250 ML IVPB SCH (18:30)
[2016-12-23] VITALS (22 sets, daily range): BP systolic 137–154; BP diastolic 77–84; PULSE 97–112; RESP 16–24
[2016-12-23] MEDS: METOCLOPRAMIDE (1 MG/ML) 10 ML CUP GTB SCH ×4 (00:41→17:51)
[2016-12-23] MEDS: INSULIN ASPART [NOVOLOG] 3 ML PEN SC SCH ×6 (00:43→21:44)
[2016-12-23] MEDS: LANSOPRAZOLE 30 MG CAP GTB SCH (05:41)
[2016-12-23] MEDS: PIPER-TAZO 3.375 GM IV (PMX) 100 ML IVPB SCH ×3 (06:29→22:36)
[2016-12-23] MEDS: LEVOTHYROXINE 25 MCG TAB GTB SCH (06:31)
[2016-12-23 06:36] LABS: ADD SCAN DIFF NO
[2016-12-23 06:40] LABS: BASOPHILS % 0.2 % (0.0-2.0); EOSINOPHILS # 0.5 10^3/ul (0.0-0.5); EOSINOPHILS % 5.1 % (0.0-7.0); HEMATOCRIT 26.2 % (42.0-52.0); HEMOGLOBIN 7.9 g/dl (14.0-18.0); LYMPHOCYTES # 1.2 10^3/ul (0.8-2.9); LYMPHOCYTES % 11.7 % (15.0-51.0); MEAN CORPUSCULAR HEMOGLOBIN 31.1 pg (29.0-33.0); MEAN CORPUSCULAR HGB CONC 30.2 g/dl (32.0-37.0); MEAN CORPUSCULAR VOLUME 103.1 fl (82.0-101.0); MEAN PLATELET VOLUME 11.9 fl (7.4-10.4); MONOCYTE # 0.8 10^3/ul (0.3-0.9); MONOCYTES % 8.3 % (0.0-11.0); NEUTROPHIL # 7.5 10^3/ul (1.6-7.5); NEUTROPHILS % 73.8 % (39.0-77.0); PLATELET COUNT 250 10^3/UL (140-415); RED BLOOD COUNT 2.54 10^6/ul (4.70-6.10); RED CELL DISTRIBUTION WIDTH 16.2 % (11.5-14.5); WHITE BLOOD COUNT 10.1 10^3/ul (4.8-10.8)
[2016-12-23 07:06] LABS: POTASSIUM 4.1 mmol/L (3.5-5.1)
[2016-12-23 07:08] LABS: CREATININE 2.06 mg/dl (0.61-1.24)
[2016-12-23 07:09] LABS: CALCIUM 9.8 mg/dl (8.4-10.2)
[2016-12-23] MEDS: MULTIVIT/CA CARB/B CMPLX/FA TAB PO SCH (08:38)
[2016-12-23] MEDS: LEVETIRACETAM (100 MG/ML) 5ML CUP GTB SCH ×2 (08:38→21:32)
[2016-12-23] MEDS: ZINC SULFATE 220 MG CAP GTB SCH (08:38)
[2016-12-23] MEDS: FAMOTIDINE 20 MG TAB GTB SCH (08:38)
[2016-12-23] MEDS: PHENYTOIN (100 MG/4 ML) CUP GTB SCH (08:38)
[2016-12-23] MEDS: ASCORBIC ACID 500 MG TAB PO SCH (08:38)
[2016-12-23] MEDS: PROPRANOLOL 20 MG TAB GTB SCH ×2 (08:39→13:00)
[2016-12-23] MEDS: ENOXAPARIN 30 MG/0.3 ML SYG SC SCH (08:42)
--- NOTE | 2016-12-23 09:33 | PN ---
DATE: 12/23/2016 SUBJECTIVE: The patient remains clinically stable. No other acute events noted overnight. No hemo ptysis, hematemesis, or hematochezia. OBJECTIVE: VITAL SIGNS: Blood pressure 147/80, respirations 20, pulse 115, temperature is 98.0. HEENT: Head is normocephalic. NECK: Supple. HEART: Tachycardic. LUNGS: Show diminished breath sounds at base. ABDOMEN: Soft, nontender to palpation. No rebound or guarding. EXTREMITIES: Negative for clubbing, cyanosis, no edema. DERMATOLOGIC: No rashes. MUSCULOSKELETAL: No joint effusions. NEUROLOGIC: No change in exam. MEDICATIONS: The patient's medications have been reviewed. LABORATORY DATA: Shows sodium 152, potassium 4.1, chloride 116, BUN 60, creatinine 2.06, phosphorus 5.0. White count 10.0, hemoglobin 7.9, hematocrit 26.2, platelet count is 250. The patient's urin alysis shows a FENa of greater than 1%. Urine tox is negative. ABG shows pH 7.422, pCO2 of 24. Th e patient's blood cultures positive for gram-positive cocci. Renal ultrasound shows medical renal d isease and cortices. ASSESSMENT AND PLAN: 1. Nonoliguric acute kidney injury on top of chronic kidney disease, stage IV, with baseline creati nine around 2 mg/dL. Etiology of acute kidney injury is secondary to hemodynamics, septic acute kid bhaskar injury. The patient's renal function appears to be stabilizing. Continue current treatment erika n, supportive care, renally dose all meds, and avoid nephrotoxins. 2. Hyponatremia. The patient's free water deficit of 2.5 liters. We will increase free water flus hes 300 mL q. 4 hours and monitor closely. 3. Metabolic acidosis secondary to acute kidney injury. Continue to monitor. 4. Anemia. The patient had a drop in hemoglobin. Iron panel shows replete stores. Underlying flakito ology is likely due to chronic kidney disease. The patient is status post Epogen 20,000 units x1. We will continue to monitor H and H levels. Stool for occult blood is currently pending. 5. Mineral bone disorder. Continue to monitor calcium and phosphorus levels. No need for phosphat e binders. 6. History of sepsis secondary to urinary tract infection and bacteremia. The patient is on broad spectrum antibiotics. We will continue. Follow up with infectious disease. 7. Ventilator dependent respiratory failure. Vent settings have been reviewed. ABG has been revie wed. Follow up with pulmonary. 8. Dysphagia, status post percutaneous endoscopic gastrostomy. Continue tube feed. 9. Diabetes. Continue Accu-Cheks and sliding scale. 10. Tachycardia. Etiology is multifactorial. Continue propranolol. Cardiology evaluation. 11. Chronic encephalopathy secondary to anoxic brain injury. Continue to monitor. 12. Seizure disorder. Continue Keppra and Dilantin. 13. Hypothyroidism. Continue Synthroid. 14. Gastrointestinal and deep venous thrombosis prophylaxis. Continue Pepcid, Lovenox, sequential leg squeezers. Dictated By: JESSE ARMSTRONG/NTS Conf#: [id number] DID#: [id number]
--- NOTE | 2016-12-23 12:16 | CONS ---
Date/Time of Note Date/Time of Note DATE: 12/23/16 TIME: 12:13 Assessment/Plan Assessment/Plan Additional Assessment/Plan Assessment and recommendation; next 1. Patient admitted for sepsis. 2. Hypernatremia, currently on fluid replacement. 3. Diabetes. 4. Seizures . 5. Hypothyroidism. 6. Anemia. 7. Chronic respiratory failure due to anoxic enthesopathy. Continue current treatment. Consultation Date/Type/Reason Admit Date/Time Dec 21, 2016 at 16:40 Type of Consultation: Pulmonary 24 HR Interval Summary Free Text/Dictation Patient condition is stable. Patient is awake but does not respond to any commands owing to anoxic encephalopathy. Remains ventilator dependent. General examination; elderly male, on ventilator via tracheostomy. Currently in no distress. Exam/Review of Systems Vital Signs Vitals Vital Signs Date Time Temp Pulse Resp B/P Pulse Ox O2 Delivery O2 Flow Rate FiO2 12/23/16 11:03 110 21 100 30 12/23/16 08:02 98.0 147/80 12/21/16 22:00 Mechanical Ventilator Intake and Output 12/22/16 12/22/16 12/23/16 15:00 23:00 07:00 Intake Total 820 ml 870 ml Output Total 1700 ml 900 ml Balance -880 ml -30 ml Exam HEENT examination; supple neck, no JVD. Tracheostomy in place. Fair dentition. Pupils are midsize reactive to light. Chest examination; diminished but clear breath sounds bilaterally. S1-S2 audible. No murmurs. Regular rhythm. Abdomen examination; soft, G-tube in place, bowel sounds audible, no organomegaly. Extremity examination; no peripheral edema. INTAKE MANAGER examination; patient is awake, but does not respond to any commands. Ventilator settings; assist control of 16, tidal volume 600, PEEP of 5, 30% FiO2. Results Result Diagram: 12/23/16 0612/23/16 0605 Results 24 hrs Laboratory Tests Test 12/22/16 12:29 12/22/16 17:13 12/22/16 20:58 12/23/16 00:42 Bedside Glucose 139 142 131 124 Test 12/23/16 05:40 12/23/16 06:05 12/23/16 07:29 Bedside Glucose 112 136 Anion Gap 18 H Basophils # 0.0 Basophils % 0.2 Blood Urea Nitrogen 63 H Calcium Level 9.8 Carbon Dioxide Level 22 Chloride Level 116 H Creatinine 2.06 H Eosinophils # 0.5 Eosinophils % 5.1 Glucose Level 107 Hematocrit 26.2 L Hemoglobin 7.9 L Lymphocytes # 1.2 Lymphocytes % 11.7 L Magnesium Level 2.0 Mean Corpuscular Hemoglobin 31.1 Mean Corpuscular Hemoglobin Concent 30.2 L Mean Corpuscular Volume 103.1 H Mean Platelet Volume 11.9 H Monocytes # 0.8 Monocytes % 8.3 Neutrophils # 7.5 Neutrophils % 73.8 Nucleated Red Blood Cells # 0.0 Nucleated Red Blood Cells % 0.0 Phosphorus Level 5.0 H Platelet Count 250 Potassium Level 4.1 Red Blood Count 2.54 L Red Cell Distribution Width 16.2 H Sodium Level 152 H White Blood Count 10.1 Medications Medications Current Medications Piperacillin Sod/ Tazobactam Sod (Zosyn 3.375gm/ 100 ml (Pmx)) 100 ml @ 200 mls /hr Q8 IVPB Last administered on 12/23/16 06:29; Admin Dose 200 MLS/HR; Start 12/21/16 at 22:00 Lorazepam (Ativan) 0.5 mg Q6H PRN IV ANXIETY; Start 12/21/16 at 19:00 Ondansetron HCl (Zofran Tab) 4 mg Q6H PRN PO NAUSEA AND/OR VOMITING; Start 12/21 at 19:00 Nitroglycerin (Nitroglycerin (Sl Tab) 0.4 Mg) 1 tab Q5M PRN SL CHEST PAIN; Start 12/21/16 at 19:00 Acetaminophen (Tylenol Tab) 650 mg Q6H PRN PO PAIN LEVEL 1-3 OR FEVER; Start at 19:00 Acetaminophen (Tylenol Supp) 650 mg Q6H PRN [place] PAIN LEVEL 1-3 OR FEVER; Start 12/21/16 at 19:00 Enoxaparin Sodium (Lovenox) 30 mg DAILY SC Last administered on 12/23/16 08:42 ; Admin Dose 30 MG; Start 12/22/16 at 09:00 Ascorbic Acid (Vitamin C) 500 mg DAILY PO Last administered on 12/23/16 08:38 ; Admin Dose 500 MG; Start 12/21/16 at 19:30 Famotidine (Pepcid) 20 mg DAILY GTB Last administered on 12/23/16 08:38; Admin Dose 20 MG; Start 12/22/16 at 09:00 Insulin Glargine (Lantus) 12 unit QHS SC Last administered on 12/22/16 21:03; Admin Dose 12 UNIT; Start 12/21/16 at 21:00 Levetiracetam (Keppra Liquid) 500 mg BID GTB Last administered on 12/23/16 08: 38; Admin Dose 500 MG; Start 12/21/16 at 21:00 Metoclopramide HCl (Reglan Liq) 5 mg Q6 GTB Last administered on 12/23/16 05: 41; Admin Dose 5 MG; Start 12/22/16 at 00:00 Phenytoin (Dilantin Susp Cup) 300 mg DAILY GTB Last administered on 12/23/16 08:38; Admin Dose 300 MG; Start 12/22/16 at 09:00 Prochlorperazine (Compazine) 5 mg Q6 PRN GTB NAUSEA; Start 12/21/16 at 19:00 Zinc Sulfate (Zinc Sulfate) 220 mg DAILY GTB Last administered on 12/23/16 08: 38; Admin Dose 220 MG; Start 12/22/16 at 09:00 Lansoprazole (Prevacid) 30 mg DAILY@06 GTB Last administered on 12/23/16 05:41 ; Admin Dose 30 MG; Start 12/22/16 at 06:00 Multivit/Ca Carb/ B Cmplx/FA/Prenat (Lou-Mis) 1 tab DAILY PO Last administered on 12/23/16 08:38; Admin Dose 1 TAB; Start 12/22/16 at 09:00 Insulin Aspart (Novolog Insulin Pen) NOVOLOG *MILD* ALGORI... Q4 SC Last administered on 12/22/16 17:16; Admin Dose 1 UNIT; Start 12/21/16 at 21:00 Miscellaneous Information 1 ea NOTE XX ; Start 12/21/16 at 19:30 Glucose (Glutose) 15 gm Q15M PRN PO DECREASED GLUCOSE; Start 12/21/16 at 19:30 Glucose (Glutose) 22.5 gm Q15M PRN PO DECREASED GLUCOSE; Start 12/21/16 at 19:30 Dextrose (D50w Syringe) 25 ml Q15M PRN IV DECREASED GLUCOSE; Start 12/21/16 at 19:30 Dextrose (D50w Syringe) 50 ml Q15M PRN IV DECREASED GLUCOSE; Start 12/21/16 at 19:30 Glucagon (Glucagen) 1 mg Q15M PRN IM DECREASED GLUCOSE; Start 12/21/16 at 19:30 Glucose (Glutose) 15 gm Q15M PRN BUCCAL DECREASED GLUCOSE; Start 12/21/16 at 19: 30 Propranolol HCl (Inderal) 20 mg TID GTB Last administered on 12/23/16t 08:39; Admin Dose 20 MG; Start 12/21/16 at 23:28 Influenza Virus Vaccine 0.5 ml 0.5 ml ONCE ONCE IM* ; Start 12/24/16 at 09:00; Stop 12/24/16 at 09:01 Vancomycin HCl/ Sodium Chloride (Vancocin/NS) 150 ml @ 75 mls/hr Q24H IVPB ; Start 12/23/16 at 20:00 STEVEN CUETO Dec 23, 2016 12:16
--- NOTE | 2016-12-23 13:03 | PN ---
DATE: 12/23/2016 SUBJECTIVE: No acute events overnight. The patient is lying comfortably in bed. Afebrile. LABORATORY DATA: WBC today 10.1, platelets 250, no shift, no bands. BUN 63, creatinine 2.06. MICROBIOLOGY: Urine culture negative. Blood culture growing staph species. ANTIMICROBIALS: The patient is on: 1. IV vancomycin. 2. Zosyn. PHYSICAL EXAMINATION: GENERAL: This is a fragile, chronically ill-appearing, middle-aged man who is lying comfortably in bed. HEENT: Head atraumatic, normocephalic. Sclerae anicteric. Buccal mucosa dry. NECK: Supple. Tracheostomy present. CHEST: Rise symmetrical. Breath sounds diminished. HEART: S1, S2. ABDOMEN: Soft. Bowel sounds present. ASSESSMENT: 1. Resolving sepsis. 2. Urinary tract infection as per urinalysis. 3. Coagulase-negative staph bacteremia, rule out contaminant. 4. Chronic encephalopathy and persistent vegetative state. 5. Acute on chronic kidney disease. PLAN: We are going to change vancomycin to doxycycline. Await for repeat blood cultures. Continue Zosyn. Vent management as per pulmonary. Dictated By: KODAK CORTEZ OVERLAY PLASTICIAN for OTTO VILLALOBOS/RIO Conf#: [id number] DID#: [id number]
[2016-12-23 14:48] LABS: MICROALBUMIN 2.8 mg/dL
[2016-12-23] MEDS ORDERED: VANCOMYCIN 750 MG in SOD CHLORIDE 0.9% 150 ML IVPB SCH (20:00)
[2016-12-23] MEDS: DOXYCYCLINE 100 MG TAB PO SCH (21:32)
[2016-12-23] MEDS: PROPRANOLOL 40 MG TAB GTB SCH (21:45)
[2016-12-23] MEDS: INSULIN GLARGINE [LANtus] 3 ML PEN SC SCH (21:48)
[2016-12-24] VITALS (24 sets, daily range): BP systolic 134–162; BP diastolic 73–91; PULSE 90–100; RESP 16–22
[2016-12-24] MEDS: METOCLOPRAMIDE (1 MG/ML) 10 ML CUP GTB SCH ×4 (00:44→18:12)
[2016-12-24] MEDS: INSULIN ASPART [NOVOLOG] 3 ML PEN SC SCH ×6 (00:48→20:33)
[2016-12-24] MEDS: LANSOPRAZOLE 30 MG CAP GTB SCH (05:00)
[2016-12-24] MEDS: PIPER-TAZO 3.375 GM IV (PMX) 100 ML IVPB SCH ×3 (05:01→22:13)
[2016-12-24] MEDS: LEVOTHYROXINE 25 MCG TAB GTB SCH (06:06)
[2016-12-24 07:25] LABS: ADD SCAN DIFF NO
[2016-12-24 07:35] LABS: BASOPHIL # 0.1 10^3/ul (0.0-0.1); BASOPHILS % 0.8 % (0.0-2.0); EOSINOPHILS # 0.4 10^3/ul (0.0-0.5); HEMATOCRIT 24.6 % (42.0-52.0); HEMOGLOBIN 8.3 g/dl (14.0-18.0); LYMPHOCYTES # 1.4 10^3/ul (0.8-2.9); MEAN CORPUSCULAR HEMOGLOBIN 31.7 pg (29.0-33.0); MEAN CORPUSCULAR HGB CONC 33.9 g/dl (32.0-37.0); MEAN CORPUSCULAR VOLUME 93.5 fl (82.0-101.0); MEAN PLATELET VOLUME 10.4 fl (7.4-10.4); MONOCYTE # 0.8 10^3/ul (0.3-0.9); MONOCYTES % 9.8 % (0.0-11.0); NEUTROPHIL # 5.6 10^3/ul (1.6-7.5); NEUTROPHILS % 67.4 % (39.0-77.0); PLATELET COUNT 256 10^3/UL (140-440); RED BLOOD COUNT 2.63 10^6/ul (4.70-6.10); RED CELL DISTRIBUTION WIDTH 16.7 % (11.5-14.5); WHITE BLOOD COUNT 8.4 10^3/ul (4.8-10.8)
[2016-12-24 07:41] LABS: POTASSIUM 4.1 mmol/L (3.5-5.1)
[2016-12-24 07:43] LABS: CREATININE 2.12 mg/dl (0.61-1.24)
[2016-12-24 07:44] LABS: MAGNESIUM 1.9 mg/dl (1.7-2.5); PHOSPHORUS 4.9 mg/dl (2.5-4.9)
--- NOTE | 2016-12-24 08:01 | CONS ---
DATE OF ADMISSION: 12/21/2016 DATE OF CONSULTATION: 12/23/2016 TYPE OF CONSULTATION: Cardiology. REFERRING PHYSICIAN: Dr. Jose Angel Roberts REASON FOR CONSULTATION: Tachycardia. CHIEF COMPLAINT: Sepsis, renal failure. HISTORY OF PRESENT ILLNESS: Thank you for this referral. History obtained from extensive review of the old chart. The patient is unable to relay history to me. This is an unfortunate 61-year-old g entleman with history of anoxic brain injury status post tracheostomy, vent dependent, who was broug ht in because of the elevated BUN and creatinine. The patient was admitted with sepsis. He was not ed to be tachycardic. Heart rate has been running in 100s to 110s. Rhythm strip was reviewed and r emained in sinus rhythm. The patient has remained stable other than history. Blood pressure has re mained stable. PAST MEDICAL HISTORY: History of anoxic brain injury, history of hypothyroidism on Synthroid, histo ry of tracheostomy, respiratory failure, dysphagia status post PEG placement, history of seizure dis order, diabetes, dyslipidemia. ALLERGIES: NO REPORTED ALLERGIES. FAMILY HISTORY: No reported early coronary disease. SOCIAL HISTORY: The patient lives in a halfway facility. No report alcohol or drug abuse. Ap parently has been a former smoker. MEDICATIONS: As per medical reconciliation, reviewed. REVIEW OF SYSTEMS: As above-mentioned only was obtain. PHYSICAL EXAMINATION: VITAL SIGNS: Temperature 97.9, heart rate of 97, blood pressure 140/80, respiration rate of 24, sat urating 99%. HEENT: Normocephalic, atraumatic. Eyes are open. NECK: Status post trach. CARDIOVASCULAR: Tachycardic but otherwise regular. Systolic murmur. PULMONARY: With no wheezes heard. GASTROINTESTINAL: Soft, nontender. EXTREMITIES: No significant lower extremity edema. NEUROLOGIC: Nonresponsive to verbal stimuli. LABORATORY: Sodium 142, potassium 4.1, BUN of 63, creatinine 2.06, glucose of 107. WBC of 10.1, he moglobin 7.9, platelets of 250. Chest x-ray shows left lung base atelectasis. EKG was personally r ruthiewed, sinus tachycardia. Old charts were reviewed. The patient had an echocardiogram done on which was personally reviewed. Echocardiogram showed ejection fraction of 60% with no evid ence of pericardial effusion. ASSESSMENT AND PLAN: 1. Sinus tachycardia, appeared to be multifactorial related to anemia, sepsis, encephalopathy, etc. 2. Hypoxemia, respiratory failure, status post tracheostomy. 3. Renal failure, acute on chronic. 4. Metabolic acidosis. 5. Dysphagia, status post percutaneous endoscopic gastrostomy placement. 6. History of anoxic brain injury and encephalopathy. 7. Diabetes negative. 8. History of seizure disorder on Keppra and Dilantin. 9. Thyroid disorder on Synthroid. RECOMMENDATIONS: TSH was within normal limits. Transfusion will be deferred to the internal medici ne decision. Additional blood pressure is stable. I would increase his propranolol to 40 mg t.i.d. and monitor him. IV fluid management as per renal. Antibiotic is managed as per internal medicine and ID's recommendation. Thank you for this referral. Dictated By: ZHAO DUMONT/RIO Conf#: [id number] DID#: [id number]
[2016-12-24] MEDS ORDERED: INFLUENZA VIRUS VACCINE 0.5 ML (DISPENSING) IM* ONE (09:00)
[2016-12-24] MEDS: LEVETIRACETAM (100 MG/ML) 5ML CUP GTB SCH ×2 (09:16→20:30)
[2016-12-24] MEDS: PROPRANOLOL 40 MG TAB GTB SCH ×3 (09:16→20:36)
[2016-12-24] MEDS: PHENYTOIN (100 MG/4 ML) CUP GTB SCH (09:16)
[2016-12-24] MEDS: ASCORBIC ACID 500 MG TAB PO SCH (09:17)
[2016-12-24] MEDS: ZINC SULFATE 220 MG CAP GTB SCH (09:17)
[2016-12-24] MEDS: DOXYCYCLINE 100 MG TAB PO SCH ×2 (09:17→20:30)
[2016-12-24] MEDS: FAMOTIDINE 20 MG TAB GTB SCH (09:17)
[2016-12-24] MEDS: MULTIVIT/CA CARB/B CMPLX/FA TAB PO SCH (09:17)
[2016-12-24] MEDS: ENOXAPARIN 30 MG/0.3 ML SYG SC SCH (09:19)
--- NOTE | 2016-12-24 10:30 | CONS ---
Date/Time of Note Date/Time of Note DATE: 12/24/16 TIME: 10:30 Assessment/Plan Assessment/Plan Chief Complaint/Hosp Course ID PROGRESS NOTE TOTAL ABX DAY # Doxy #2 (s/p Vanco) + Zosyn 24H INTERVAL SUMMARY * Non-communicative, Trach, Peg, PIV, contracted extremities PHYSICAL EXAMINATION: GENERAL: VSS, NAD HEENT: Unremarkable NECK: Trach midline CHEST: Rise symmetrical - without dyspnea on observation HEART: RRR ABDOMEN: Soft, EXTREMITIES: Warm, ID ASSESSMENT: 61 yo M w/PMHx 1. Resolving sepsis. 2. Urinary tract infection as per urinalysis ?Prostatitis with (-)Final micro 3. Coagulase-negative staph bacteremia, rule out contaminant. 4. Chronic encephalopathy and persistent vegetative state. 5. Acute on chronic kidney disease. (-)MRSA Nares INVASIVES: *PIV ABX ALLERGIES: KNDA CURRENT ABX: Doxy + Zosyn s/p Vanco IV ID RECOMMENDATIONS: Continue current ABX Tx for 7 days total Problems: Consultation Date/Type/Reason Admit Date/Time Dec 21, 2016 at 16:40 Initial Consult Date Type of Consultation: ID Exam/Review of Systems Vital Signs Vitals Vital Signs Date Time Temp Pulse Resp B/P Pulse Ox O2 Delivery O2 Flow Rate FiO2 12/24/16 09:00 104 16 100 30 12/24/16 07:42 97.8 162/91 12/21/16 22:00 Mechanical Ventilator Intake and Output 12/23/16 12/23/16 12/24/16 15:00 23:00 07:00 Intake Total 200 ml 1120 ml 1175 ml Output Total 1200 ml 1550 ml Balance 200 ml -80 ml -375 ml Results Result Diagram: 12/24/16 0625 12/24/16 0625 Results 24 hrs Laboratory Tests Test 12/23/16 12:50 12/23/16 17:29 12/23/16 21:29 12/24/16 00:48 Bedside Glucose 133 130 141 121 Test 12/24/16 04:51 12/24/16 06:25 12/24/16 07:34 Bedside Glucose 113 116 Anion Gap 17 H Basophils # 0.1 Basophils % 0.8 Blood Morphology Comment Blood Urea Nitrogen 53 H Calcium Level 10.0 Carbon Dioxide Level 23 Chloride Level 115 H Creatinine 2.12 H Eosinophils # 0.4 Eosinophils % 5.0 Glucose Level 116 Hematocrit 24.6 L Hemoglobin 8.3 L Lymphocytes # 1.4 Lymphocytes % 17.0 Magnesium Level 1.9 Mean Corpuscular Hemoglobin 31.7 Mean Corpuscular Hemoglobin Concent 33.9 Mean Corpuscular Volume 93.5 Mean Platelet Volume 10.4 Monocytes # 0.8 Monocytes % 9.8 Neutrophils # 5.6 Neutrophils % 67.4 Nucleated Red Blood Cells # 0.0 Nucleated Red Blood Cells % 0.0 Phosphorus Level 4.9 Platelet Count 256 Potassium Level 4.1 Red Blood Count 2.63 L Red Cell Distribution Width 16.7 H Sodium Level 151 H White Blood Count 8.4 Medications Medications Current Medications Piperacillin Sod/ Tazobactam Sod (Zosyn 3.375gm/ 100 ml (Pmx)) 100 ml @ 200 mls /hr Q8 IVPB Last administered on 12/24/16 05:01; Admin Dose 200 MLS/HR; Start 12/21/16 at 22:00 Lorazepam (Ativan) 0.5 mg Q6H PRN IV ANXIETY; Start 12/21/16 at 19:00 Ondansetron HCl (Zofran Tab) 4 mg Q6H PRN PO NAUSEA AND/OR VOMITING; Start 12/21 at 19:00 Nitroglycerin (Nitroglycerin (Sl Tab) 0.4 Mg) 1 tab Q5M PRN SL CHEST PAIN; Start 12/21/16 at 19:00 Acetaminophen (Tylenol Tab) 650 mg Q6H PRN PO PAIN LEVEL 1-3 OR FEVER; Start at 19:00 Acetaminophen (Tylenol Supp) 650 mg Q6H PRN IN PAIN LEVEL 1-3 OR FEVER; Start 12/21/16 at 19:00 Enoxaparin Sodium (Lovenox) 30 mg DAILY SC Last administered on 12/24/16 09:19 ; Admin Dose 30 MG; Start 12/22/16 at 09:00 Ascorbic Acid (Vitamin C) 500 mg DAILY PO Last administered on 12/24/16 09:17 ; Admin Dose 500 MG; Start 12/21/16 at 19:30 Famotidine (Pepcid) 20 mg DAILY GTB Last administered on 12/24/16 09:17; Admin Dose 20 MG; Start 12/22/16 at 09:00 Insulin Glargine (Lantus) 12 unit QHS SC Last administered on 12/23/16 21:48; Admin Dose 12 UNIT; Start 12/21/16 at 21:00 Levetiracetam (Keppra Liquid) 500 mg BID GTB Last administered on 12/24/16 09: 16; Admin Dose 500 MG; Start 12/21/16 at 21:00 Metoclopramide HCl (Reglan Liq) 5 mg Q6 GTB Last administered on 12/24/16 05: 00; Admin Dose 5 MG; Start 12/22/16 at 00:00 Phenytoin (Dilantin Susp Cup) 300 mg DAILY GTB Last administered on 12/24/16 09:16; Admin Dose 300 MG; Start 12/22/16 at 09:00 Prochlorperazine (Compazine) 5 mg Q6 PRN GTB NAUSEA; Start 12/21/16 at 19:00 Zinc Sulfate (Zinc Sulfate) 220 mg DAILY GTB Last administered on 12/24/16 09: 17; Admin Dose 220 MG; Start 12/22/16 at 09:00 Lansoprazole (Prevacid) 30 mg DAILY@06 GTB Last administered on 12/24/16 05:00 ; Admin Dose 30 MG; Start 12/22/16 at 06:00 Multivit/Ca Carb/ B Cmplx/FA/Prenat (Lou-Mis) 1 tab DAILY PO Last administered on 12/24/16 09:17; Admin Dose 1 TAB; Start 12/22/16 at 09:00 Insulin Aspart (Novolog Insulin Pen) NOVOLOG *MILD* ALGORI... Q4 SC Last administered on 12/23/16 21:44; Admin Dose 1 UNIT; Start 12/21/16 at 21:00 Miscellaneous Information 1 ea NOTE XX ; Start 12/21/16 at 19:30 Glucose (Glutose) 15 gm Q15M PRN PO DECREASED GLUCOSE; Start 12/21/16 at 19:30 Glucose (Glutose) 22.5 gm Q15M PRN PO DECREASED GLUCOSE; Start 12/21/16 at 19:30 Dextrose (D50w Syringe) 25 ml Q15M PRN IV DECREASED GLUCOSE; Start 12/21/16 at 19:30 Dextrose (D50w Syringe) 50 ml Q15M PRN IV DECREASED GLUCOSE; Start 12/21/16 at 19:30 Glucagon (Glucagen) 1 mg Q15M PRN IM DECREASED GLUCOSE; Start 12/21/16 at 19:30 Glucose (Glutose) 15 gm Q15M PRN BUCCAL DECREASED GLUCOSE; Start 12/21/16 at 19: 30 Influenza Virus Vaccine (Fluzone) 0.5 ml ONCE ONCE IM* ; Start 12/24/16 at 09:00 ; Stop 12/24/16 at 09:01 Doxycycline Hyclate (Vibramycin) 100 mg BID PO Last administered on 12/24/16 09:17; Admin Dose 100 MG; Start 12/23/16 at 21:00 Propranolol HCl (Inderal) 40 mg TID GTB Last administered on 12/24/16 09:16; Admin Dose 40 MG; Start 12/23/16 at 21:00 Epoetin Alexander (Epogen (Esrd)) 10,000 units MoWeFr@17 SC ; Start 12/26/16 at 17:00 NADIA WING NP Dec 24, 2016 10:30
--- NOTE | 2016-12-24 11:13 | PN ---
DATE: 12/24/2016 SUBJECTIVE: The patient remains critical, but stable. No other acute events noted. No fevers. No hemoptysis, hematemesis. OBJECTIVE: VITAL SIGNS: Blood pressure is 162/91, respiration 18, pulse 103, temperature 97.8. I's and O's 2. 4 liters in, 2.7 liters out. HEENT: Head is normocephalic. NECK: Supple. HEART: Regular rate. LUNGS: Show diminished breath sounds at the base. ABDOMEN: Soft, nontender to palpation. No rebound or guarding. EXTREMITIES: Negative for clubbing, cyanosis, or edema. DERMATOLOGIC: No rashes. MUSCULOSKELETAL: No joint effusions. NEUROLOGIC: No change in exam. MEDICATIONS: The patient's medications have been reviewed. LABORATORY DATA: Shows sodium 151, potassium 4.1, chloride 115, BUN 53, creatinine 2.12. White cou nt 8.4, hemoglobin 8.3, hematocrit 24.7, platelet count is 256. ASSESSMENT AND PLAN: 1. Nonoliguric acute kidney injury on top of chronic kidney disease stage IV with a baseline creati nine around 2 mg/dL. Etiology of acute kidney injury was secondary to hemodynamics and septic acute kidney injury. Renal function appears to have stabilized. Continue current treatment plan, suppor tive care, renally dose all meds, avoid nephrotoxins. 2. Hypernatremia. The patient continues to have a free water deficit of approximately 2.5 liters. Will increase free water flushes to 400 mL q.4h. Monitor I's and O's closely. 3. Metabolic acidosis secondary to acute kidney injury. Continue to monitor. 4. Anemia of chronic kidney disease. The patient is status post Epogen. Hemoglobin levels are sta rting to improve. Continue to monitor. Will give Epogen weekly. 5. Mineral bone disorder. Continue to monitor calcium and phosphorus levels. No need for phosphat e binders. 6. Sepsis secondary to urinary tract infection bacteremia. Continue current antibiotic regimen. F ollow up with infectious disease. 7. Ventilator dependent respiratory failure. Vent settings reviewed. ABG is reviewed. Continue t o monitor. Follow up with Pulmonary. 8. Dysphagia, status post PEG. Continue tube feeding. 9. Diabetes. Continue Accu-Cheks and sliding scale. 10. Tachycardia. Appreciate cardiology evaluation. The patient's propranolol was titrated and has been adjusted. Will continue to monitor. 11. Hypertension. Continue current blood pressure regimen. 12. Chronic encephalopathy secondary to anoxic brain injury. Continue to monitor. 13. Seizure disorder. Continue Keppra and Dilantin. 14. Hypothyroidism. Continue Synthroid. 15. Gastrointestinal and deep venous thrombosis prophylaxis. Continue Pepcid, Lovenox and sequenti al leg squeezers. Dictated By: JESSE ARMSTRONG/RIO Conf#: [id number] DID#: [id number]
--- NOTE | 2016-12-24 19:23 | CONS ---
Date/Time of Note Date/Time of Note DATE: 12/24/16 TIME: 19:21 Consult Date/Type/Reason Admit Date/Time Dec 21, 2016 at 16:40 Initial Consult Date Type of Consultation: Pulm Subjective no events. On [facility] vent. Objective Vital Signs Date Time Temp Pulse Resp B/P Pulse Ox O2 Delivery O2 Flow Rate FiO2 12/24/16 17:52 90 16 100 30 12/24/16 15:55 98.6 154/84 12/21/16 22:00 Mechanical Ventilator Intake and Output 12/23/16 12/23/16 12/24/16 15:00 23:00 07:00 Intake Total 200 ml 1120 ml 1175 ml Output Total 1200 ml 1550 ml Balance 200 ml -80 ml -375 ml HEENT: Neck supple; no JVD; no LAD, trach in place CVS: RRR, S1 and S2 CHEST: Clear ABD: Soft, NT, + BS EXT: No c/c + edema Results/Medications Result Diagram: 12/24/1625 12/24/16 0625 Results 24 hrs Laboratory Tests Test 12/23/16 21:29 12/24/16 00:48 12/24/16 04:51 12/24/16 06:25 Bedside Glucose 141 121 113 Anion Gap 17 H Basophils # 0.1 Basophils % 0.8 Blood Morphology Comment Blood Urea Nitrogen 53 H Calcium Level 10.0 Carbon Dioxide Level 23 Chloride Level 115 H Creatinine 2.12 H Eosinophils # 0.4 Eosinophils % 5.0 Glucose Level 116 Hematocrit 24.6 L Hemoglobin 8.3 L Lymphocytes # 1.4 Lymphocytes % 17.0 Magnesium Level 1.9 Mean Corpuscular Hemoglobin 31.7 Mean Corpuscular Hemoglobin Concent 33.9 Mean Corpuscular Volume 93.5 Mean Platelet Volume 10.4 Monocytes # 0.8 Monocytes % 9.8 Neutrophils # 5.6 Neutrophils % 67.4 Nucleated Red Blood Cells # 0.0 Nucleated Red Blood Cells % 0.0 Phosphorus Level 4.9 Platelet Count 256 Potassium Level 4.1 Red Blood Count 2.63 L Red Cell Distribution Width 16.7 H Sodium Level 151 H White Blood Count 8.4 Test 12/24/16 07:34 12/24/16 11:18 12/24/16 17:24 Bedside Glucose 116 138 133 Medications Current Medications Piperacillin Sod/ Tazobactam Sod (Zosyn 3.375gm/ 100 ml (Pmx)) 100 ml @ 200 mls /hr Q8 IVPB Last administered on 12/24/16 13:58; Admin Dose 200 MLS/HR; Start 12/21/16 at 22:00 Lorazepam (Ativan) 0.5 mg Q6H PRN IV ANXIETY; Start 12/21/16 at 19:00 Ondansetron HCl (Zofran Tab) 4 mg Q6H PRN PO NAUSEA AND/OR VOMITING; Start 12/21 at 19:00 Nitroglycerin (Nitroglycerin (Sl Tab) 0.4 Mg) 1 tab Q5M PRN SL CHEST PAIN; Start 12/21/16 at 19:00 Acetaminophen (Tylenol Tab) 650 mg Q6H PRN PO PAIN LEVEL 1-3 OR FEVER; Start at 19:00 Acetaminophen (Tylenol Supp) 650 mg Q6H PRN NE PAIN LEVEL 1-3 OR FEVER; Start 12/21/16 at 19:00 Enoxaparin Sodium (Lovenox) 30 mg DAILY SC Last administered on 12/24/16 09:19 ; Admin Dose 30 MG; Start 12/22/16 at 09:00 Ascorbic Acid (Vitamin C) 500 mg DAILY PO Last administered on 12/24/16 09:17 ; Admin Dose 500 MG; Start 12/21/16 at 19:30 Famotidine (Pepcid) 20 mg DAILY GTB Last administered on 12/24/16 09:17; Admin Dose 20 MG; Start 12/22/16 at 09:00 Insulin Glargine (Lantus) 12 unit QHS SC Last administered on 12/23/16 21:48; Admin Dose 12 UNIT; Start 12/21/16 at 21:00 Levetiracetam (Keppra Liquid) 500 mg BID GTB Last administered on 12/24/16 09: 16; Admin Dose 500 MG; Start 12/21/16 at 21:00 Metoclopramide HCl (Reglan Liq) 5 mg Q6 GTB Last administered on 12/24/16 18: 12; Admin Dose 5 MG; Start 12/22/16 at 00:00 Phenytoin (Dilantin Susp Cup) 300 mg DAILY GTB Last administered on 12/24/16 09:16; Admin Dose 300 MG; Start 12/22/16 at 09:00 Prochlorperazine (Compazine) 5 mg Q6 PRN GTB NAUSEA; Start 12/21/16 at 19:00 Zinc Sulfate (Zinc Sulfate) 220 mg DAILY GTB Last administered on 12/24/16 09: 17; Admin Dose 220 MG; Start 12/22/16 at 09:00 Lansoprazole (Prevacid) 30 mg DAILY@06 GTB Last administered on 12/24/16 05:00 ; Admin Dose 30 MG; Start 12/22/16 at 06:00 Multivit/Ca Carb/ B Cmplx/FA/Prenat (Lou-Mis) 1 tab DAILY PO Last administered on 12/24/16 09:17; Admin Dose 1 TAB; Start 12/22/16 at 09:00 Insulin Aspart (Novolog Insulin Pen) NOVOLOG *MILD* ALGORI... Q4 SC Last administered on 12/23/16 21:44; Admin Dose 1 UNIT; Start 12/21/16 at 21:00 Miscellaneous Information 1 ea NOTE XX ; Start 12/21/16 at 19:30 Glucose (Glutose) 15 gm Q15M PRN PO DECREASED GLUCOSE; Start 12/21/16 at 19:30 Glucose (Glutose) 22.5 gm Q15M PRN PO DECREASED GLUCOSE; Start 12/21/16 at 19:30 Dextrose (D50w Syringe) 25 ml Q15M PRN IV DECREASED GLUCOSE; Start 12/21/16 at 19:30 Dextrose (D50w Syringe) 50 ml Q15M PRN IV DECREASED GLUCOSE; Start 12/21/16 at 19:30 Glucagon (Glucagen) 1 mg Q15M PRN IM DECREASED GLUCOSE; Start 12/21/16 at 19:30 Glucose (Glutose) 15 gm Q15M PRN BUCCAL DECREASED GLUCOSE; Start 12/21/16 at 19: 30 Influenza Virus Vaccine (Fluzone) 0.5 ml ONCE ONCE IM* ; Start 12/24/16 at 09:00 ; Stop 12/24/16 at 09:01 Doxycycline Hyclate (Vibramycin) 100 mg BID PO Last administered on 12/24/16 09:17; Admin Dose 100 MG; Start 12/23/16 at 21:00 Propranolol HCl (Inderal) 40 mg TID GTB Last administered on 12/24/16t 12:26; Admin Dose 40 MG; Start 12/23/16 at 21:00 Epoetin Alexander (Epogen (Esrd)) 10,000 units MoWeFr@17 SC ; Start 12/26/16 at 17:00 Assessment/Plan Additional Assessment/Plan IMP: 1. Sepsis 2. UTI 3. VDRF 4. CKD 5. Encephalopathy RECS: 1. Vent support 2. Abx 3. F/U cx's TRISTEN CALDERÓN MD Dec 24, 2016 19:23
[2016-12-24] MEDS: INSULIN GLARGINE [LANtus] 3 ML PEN SC SCH (20:37)
[2016-12-25] VITALS (24 sets, daily range): BP systolic 120–145; BP diastolic 69–82; PULSE 85–96; RESP 16–26
[2016-12-25] MEDS: INSULIN ASPART [NOVOLOG] 3 ML PEN SC SCH ×6 (00:16→20:20)
[2016-12-25] MEDS: METOCLOPRAMIDE (1 MG/ML) 10 ML CUP GTB SCH ×4 (00:16→17:23)
[2016-12-25] MEDS: LANSOPRAZOLE 30 MG CAP GTB SCH (06:34)
[2016-12-25] MEDS: LEVOTHYROXINE 25 MCG TAB GTB SCH (06:34)
[2016-12-25] MEDS: PIPER-TAZO 3.375 GM IV (PMX) 100 ML IVPB SCH ×3 (06:34→22:04)
[2016-12-25 07:34] LABS: BASOPHIL # 0.1 10^3/ul (0.0-0.1); BASOPHILS % 0.5 % (0.0-2.0); EOSINOPHILS # 0.5 10^3/ul (0.0-0.5); EOSINOPHILS % 4.2 % (0.0-7.0); HEMATOCRIT 23.9 % (42.0-52.0); HEMOGLOBIN 8.2 g/dl (14.0-18.0); LYMPHOCYTES # 1.6 10^3/ul (0.8-2.9); LYMPHOCYTES % 14.9 % (15.0-51.0); MEAN CORPUSCULAR HEMOGLOBIN 32.2 pg (29.0-33.0); MEAN CORPUSCULAR HGB CONC 34.4 g/dl (32.0-37.0); MEAN CORPUSCULAR VOLUME 93.4 fl (82.0-101.0); MEAN PLATELET VOLUME 10.3 fl (7.4-10.4); MONOCYTE # 0.8 10^3/ul (0.3-0.9); MONOCYTES % 7.4 % (0.0-11.0); NEUTROPHIL # 7.9 10^3/ul (1.6-7.5); PLATELET COUNT 274 10^3/UL (140-440); RED BLOOD COUNT 2.55 10^6/ul (4.70-6.10); RED CELL DISTRIBUTION WIDTH 16.5 % (11.5-14.5); UNCORRECTED WBC 10.8 10^3/ul (4.8-10.8); WHITE BLOOD COUNT 10.8 10^3/ul (4.8-10.8)
[2016-12-25 07:41] LABS: CONDITION 1
[2016-12-25 07:42] LABS: LH ANALYZER COMMENTS 1
[2016-12-25 07:49] LABS: POTASSIUM 3.9 mmol/L (3.5-5.1)
[2016-12-25 07:52] LABS: CREATININE 2.13 mg/dl (0.61-1.24)
[2016-12-25 07:53] LABS: MAGNESIUM 1.7 mg/dl (1.7-2.5); PHOSPHORUS 4.7 mg/dl (2.5-4.9)
--- NOTE | 2016-12-25 09:48 | PN ---
DATE: 12/25/2016 SUBJECTIVE: The patient remains clinically stable. No acute events noted overnight. No hemoptysis , hematemesis, or hematochezia. OBJECTIVE: VITAL SIGNS: Blood pressure 145/82, respirations 21, pulse 96, temperature 98.6. HEENT: Head is normocephalic. NECK: Supple. HEART: Regular rate. LUNGS: Show diminished breath sounds at the base. ABDOMEN: Soft, nontender to palpation. No rebound or guarding. EXTREMITIES: Negative for clubbing, cyanosis, edema. DERMATOLOGIC: No rashes. MUSCULOSKELETAL: No joint effusions. NEUROLOGIC: No change in exam. MEDICATIONS: The patient's medications have been reviewed. LABORATORY DATA: The CBC shows white count 10.8, hemoglobin 8.2, hematocrit 23.9, and platelet coun t is 274. The patient's BNP is pending. ASSESSMENT AND PLAN: 1. Nonoliguric acute kidney injury on top of chronic kidney disease stage IV with a baseline creati nine around 2 mg/dL. Etiology of acute kidney injury is secondary to hemodynamics, septic acute kid bhaskar injury. Renal function appears to have stabilized. We will continue current treatment plan, ortiz pportive care, renally dose all meds, and avoid nephrotoxins. 2. Hypernatremia. The patient had a free water deficit of approximately 2.5 liters. Free water fl ushes increased to 400 mL q. 4 hours and follow up repeat sodium level. 3. Metabolic acidosis secondary to acute kidney injury. Continue to monitor. 4. Anemia of chronic kidney disease. The patient is status post Epogen. We will continue to monit or hemoglobin and hematocrit levels. 5. Mineral bone disorder. Continue to monitor calcium and phosphorus levels. No need for phosphat e binders. 6. Sepsis secondary to urinary tract infection and bacteremia. Continue current antibiotic regimen . Repeat cultures have been negative. Follow up with infectious disease. 7. Ventilator dependent respiratory failure. Vent settings have been reviewed. ABGs reviewed. Co ntinue to monitor. Follow up with pulmonary. 8. Dysphagia status post PEG. Continue tube feeding. 9. Diabetes. Continue Accu-Cheks and sliding scale. 10. Tachycardia. Etiology is multifactorial. The patient's medications were adjusted. Appreciate cardiology's evaluation. 11. Hypertension. Continue current blood pressure regimen. 12. Chronic encephalopathy secondary to anoxic brain injury. Continue to monitor. 13. Seizure disorder. Continue Keppra and Dilantin. 14. Hypothyroidism. Continue Synthroid. 15. Gastrointestinal and deep venous thrombosis prophylaxis. Continue Pepcid, Lovenox, and sequent ial leg squeezers. Dictated By: JESSE ARMSTRONG/RIO Conf#: [id number] DID#: [id number]
[2016-12-25] MEDS: LEVETIRACETAM (100 MG/ML) 5ML CUP GTB SCH ×2 (10:00→20:11)
[2016-12-25] MEDS: PHENYTOIN (100 MG/4 ML) CUP GTB SCH (10:00)
[2016-12-25] MEDS: MULTIVIT/CA CARB/B CMPLX/FA TAB PO SCH (10:00)
[2016-12-25] MEDS: DOXYCYCLINE 100 MG TAB PO SCH ×2 (10:01→20:11)
[2016-12-25] MEDS: ASCORBIC ACID 500 MG TAB PO SCH (10:01)
[2016-12-25] MEDS: ZINC SULFATE 220 MG CAP GTB SCH (10:01)
[2016-12-25] MEDS: FAMOTIDINE 20 MG TAB GTB SCH (10:01)
[2016-12-25] MEDS: PROPRANOLOL 40 MG TAB GTB SCH ×3 (10:01→20:12)
[2016-12-25] MEDS: ENOXAPARIN 30 MG/0.3 ML SYG SC SCH (10:03)
--- NOTE | 2016-12-25 12:27 | CONS ---
Date/Time of Note Date/Time of Note DATE: 12/25/16 TIME: 12:25 Assessment/Plan Assessment/Plan Chief Complaint/Hosp Course ID PROGRESS NOTE TOTAL ABX DAY #5 => Doxy #3 (s/p Vanco) + Zosyn 24H INTERVAL SUMMARY * Status quo clinically stable, no new issues, chronic encephalopathy, non- communicative, Trach, Peg, PIV, contracted extremities * 12/21/15 BCX(+) BLOOD CULTURE Final BCULT GRAM BOTTLE 1 Gram positive cocci in clusters 1 of 2 bottles . seen on gram stain of the broth Organism 1 COAGULASE NEGATIVE STAPH CRITICAL TEST VALUE BTL 1 . PHONED TO & READ BACK BY GEOVANNA AGUILERA, TEL, AT 1025, 12/22/16, HN COAG NEG M.I.C. RX --------- --- CEFAZOLIN R CIPROFLOXACIN >=8 R CLINDAMYCIN <=0.25 S DOXYCYCLINE S ERYTHROMYCIN >=8 R LEVOFLOXACIN >=8 R OXACILLIN >=0.5 R PENICILLIN-G >=0.5 R RIFAMPIN <=0.5 S VANCOMYCIN 1 S TRIMETHOPRIM/SULFAMETHOXAZOLE 80 R PHYSICAL EXAMINATION: GENERAL: VSS, NAD HEENT: Unremarkable NECK: Trach midline CHEST: Rise symmetrical - without dyspnea on observation HEART: RRR ABDOMEN: Soft, EXTREMITIES: Warm, ID ASSESSMENT: 61 yo M w/PMHx 1. Resolving sepsis. 2. Urinary tract infection as per urinalysis ?Prostatitis with (-)Final micro 3. Coagulase-negative staph bacteremia, rule out contaminant. 4. Chronic encephalopathy and persistent vegetative state. 5. Acute on chronic kidney disease. (-)MRSA Nares INVASIVES: *PIV ABX ALLERGIES: KNDA CURRENT ABX: Doxy + Zosyn s/p Vanco IV ID RECOMMENDATIONS: Continue current ABX Tx for 7 days total =TOTAL ABX DAY #5 => Doxy #3 (s/p Vanco ) + Zosyn . Problems: Consultation Date/Type/Reason Admit Date/Time Dec 21, 2016 at 16:40 Type of Consultation: ID Exam/Review of Systems Vital Signs Vitals Vital Signs Date Time Temp Pulse Resp B/P Pulse Ox O2 Delivery O2 Flow Rate FiO2 12/25/16 11:42 98.6 85 16 137/74 98 12/25/16 11:00 30 12/21/16 22:00 Mechanical Ventilator Intake and Output 12/24/16 12/24/16 12/25/16 15:00 23:00 07:00 Intake Total 1340 ml 1340 ml Output Total 500 ml 650 ml Balance 840 ml 690 ml Results Result Diagram: 12/25/16 0555 12/25/16 0555 Results 24 hrs Laboratory Tests Test 12/24/16 17:24 12/24/16 20:22 12/25/16 00:14 12/25/16 04:08 Bedside Glucose 133 132 127 122 Test 12/25/16 05:55 12/25/16 07:44 12/25/16 11:24 Anion Gap 17 H Basophils # 0.1 Basophils % 0.5 Blood Morphology Comment Blood Urea Nitrogen 48 H Calcium Level 10.0 Carbon Dioxide Level 24 Chloride Level 110 Creatinine 2.13 H Eosinophils # 0.5 Eosinophils % 4.2 Glucose Level 102 Hematocrit 23.9 L Hemoglobin 8.2 L Lymphocytes # 1.6 Lymphocytes % 14.9 L Magnesium Level 1.7 Mean Corpuscular Hemoglobin 32.2 Mean Corpuscular Hemoglobin Concent 34.4 Mean Corpuscular Volume 93.4 Mean Platelet Volume 10.3 Monocytes # 0.8 Monocytes % 7.4 Neutrophils # 7.9 H Neutrophils % 73.0 Nucleated Red Blood Cells # 0.0 Nucleated Red Blood Cells % 0.0 Phosphorus Level 4.7 Platelet Count 274 Potassium Level 3.9 Red Blood Count 2.55 L Red Cell Distribution Width 16.5 H Sodium Level 147 H White Blood Count 10.8 # Bedside Glucose 128 135 Medications Medications Current Medications Piperacillin Sod/ Tazobactam Sod (Zosyn 3.375gm/ 100 ml (Pmx)) 100 ml @ 200 mls /hr Q8 IVPB Last administered on 12/25/16 06:34; Admin Dose 200 MLS/HR; Start 12/21/16 at 22:00 Lorazepam (Ativan) 0.5 mg Q6H PRN IV ANXIETY; Start 12/21/16 at 19:00 Ondansetron HCl (Zofran Tab) 4 mg Q6H PRN PO NAUSEA AND/OR VOMITING; Start 12/21 at 19:00 Nitroglycerin (Nitroglycerin (Sl Tab) 0.4 Mg) 1 tab Q5M PRN SL CHEST PAIN; Start 12/21/16 at 19:00 Acetaminophen (Tylenol Tab) 650 mg Q6H PRN PO PAIN LEVEL 1-3 OR FEVER; Start at 19:00 Acetaminophen (Tylenol Supp) 650 mg Q6H PRN [place] PAIN LEVEL 1-3 OR FEVER; Start 12/21/16 at 19:00 Enoxaparin Sodium (Lovenox) 30 mg DAILY SC Last administered on 12/25/16 10:03 ; Admin Dose 30 MG; Start 12/22/16 at 09:00 Ascorbic Acid (Vitamin C) 500 mg DAILY PO Last administered on 12/25/16 10:01 ; Admin Dose 500 MG; Start 12/21/16 at 19:30 Famotidine (Pepcid) 20 mg DAILY GTB Last administered on 12/25/16 10:01; Admin Dose 20 MG; Start 12/22/16 at 09:00 Insulin Glargine (Lantus) 12 unit QHS SC Last administered on 12/24/16 20:37; Admin Dose 12 UNIT; Start 12/21/16 at 21:00 Levetiracetam (Keppra Liquid) 500 mg BID GTB Last administered on 12/25/16 10: 00; Admin Dose 500 MG; Start 12/21/16 at 21:00 Metoclopramide HCl (Reglan Liq) 5 mg Q6 GTB Last administered on 12/25/16 06: 34; Admin Dose 5 MG; Start 12/22/16 at 00:00 Phenytoin (Dilantin Susp Cup) 300 mg DAILY GTB Last administered on 12/25/16 10:00; Admin Dose 300 MG; Start 12/22/16 at 09:00 Prochlorperazine (Compazine) 5 mg Q6 PRN GTB NAUSEA; Start 12/21/16 at 19:00 Zinc Sulfate (Zinc Sulfate) 220 mg DAILY GTB Last administered on 12/25/16 10: 01; Admin Dose 220 MG; Start 12/22/16 at 09:00 Lansoprazole (Prevacid) 30 mg DAILY@06 GTB Last administered on 12/25/16 06:34 ; Admin Dose 30 MG; Start 12/22/16 at 06:00 Multivit/Ca Carb/ B Cmplx/FA/Prenat (Lou-Mis) 1 tab DAILY PO Last administered on 12/25/16 10:00; Admin Dose 1 TAB; Start 12/22/16 at 09:00 Insulin Aspart (Novolog Insulin Pen) NOVOLOG *MILD* ALGORI... Q4 SC Last administered on 12/23/16 21:44; Admin Dose 1 UNIT; Start 12/21/16 at 21:00 Miscellaneous Information 1 ea NOTE XX ; Start 12/21/16 at 19:30 Glucose (Glutose) 15 gm Q15M PRN PO DECREASED GLUCOSE; Start 12/21/16 at 19:30 Glucose (Glutose) 22.5 gm Q15M PRN PO DECREASED GLUCOSE; Start 12/21/16 at 19:30 Dextrose (D50w Syringe) 25 ml Q15M PRN IV DECREASED GLUCOSE; Start 12/21/16 at 19:30 Dextrose (D50w Syringe) 50 ml Q15M PRN IV DECREASED GLUCOSE; Start 12/21/16 at 19:30 Glucagon (Glucagen) 1 mg Q15M PRN IM DECREASED GLUCOSE; Start 12/21/16 at 19:30 Glucose (Glutose) 15 gm Q15M PRN BUCCAL DECREASED GLUCOSE; Start 12/21/16 at 19: 30 Influenza Virus Vaccine (Fluzone) 0.5 ml ONCE ONCE IM* ; Start 12/24/16 at 09:00 ; Stop 12/24/16 at 09:01 Doxycycline Hyclate (Vibramycin) 100 mg BID PO Last administered on 12/25/16 10:01; Admin Dose 100 MG; Start 12/23/16 at 21:00 Propranolol HCl (Inderal) 40 mg TID GTB Last administered on 12/25/16t 10:01; Admin Dose 40 MG; Start 12/23/16 at 21:00 Epoetin Alexander (Epogen (Esrd)) 10,000 units MoWeFr@17 SC ; Start 12/26/16 at 17:00 NADIA WING NP Dec 25, 2016 12:27
--- NOTE | 2016-12-25 16:32 | CONS ---
Date/Time of Note Date/Time of Note DATE: 12/25/16 TIME: 16:31 Consult Date/Type/Reason Admit Date/Time Dec 21, 2016 at 16:40 Type of Consultation: Pulm Subjective No events on [facility]. Objective Vital Signs Date Time Temp Pulse Resp B/P Pulse Ox O2 Delivery O2 Flow Rate FiO2 12/25/16 15:54 98.5 83 18 140/79 97 12/25/16 15:20 30 12/21/16 22:00 Mechanical Ventilator Intake and Output 12/24/16 12/24/16 12/25/16 15:00 23:00 07:00 Intake Total 1340 ml 1340 ml Output Total 500 ml 650 ml Balance 840 ml 690 ml HEENT: Neck supple; no JVD; no LAD, trach in place CVS: RRR, S1 and S2 CHEST: Clear ABD: Soft, NT, + BS EXT: No c/c + edema Results/Medications Result Diagram: 12/25/16 0555 12/25/16 0555 Results 24 hrs Laboratory Tests Test 12/24/16 17:24 12/24/16 20:22 12/25/16 00:14 12/25/16 04:08 Bedside Glucose 133 132 127 122 Test 12/25/16 05:55 12/25/16 07:44 12/25/16 11:24 Anion Gap 17 H Basophils # 0.1 Basophils % 0.5 Blood Morphology Comment Blood Urea Nitrogen 48 H Calcium Level 10.0 Carbon Dioxide Level 24 Chloride Level 110 Creatinine 2.13 H Eosinophils # 0.5 Eosinophils % 4.2 Glucose Level 102 Hematocrit 23.9 L Hemoglobin 8.2 L Lymphocytes # 1.6 Lymphocytes % 14.9 L Magnesium Level 1.7 Mean Corpuscular Hemoglobin 32.2 Mean Corpuscular Hemoglobin Concent 34.4 Mean Corpuscular Volume 93.4 Mean Platelet Volume 10.3 Monocytes # 0.8 Monocytes % 7.4 Neutrophils # 7.9 H Neutrophils % 73.0 Nucleated Red Blood Cells # 0.0 Nucleated Red Blood Cells % 0.0 Phosphorus Level 4.7 Platelet Count 274 Potassium Level 3.9 Red Blood Count 2.55 L Red Cell Distribution Width 16.5 H Sodium Level 147 H White Blood Count 10.8 # Bedside Glucose 128 135 Medications Current Medications Piperacillin Sod/ Tazobactam Sod (Zosyn 3.375gm/ 100 ml (Pmx)) 100 ml @ 200 mls /hr Q8 IVPB Last administered on 12/25/16 13:07; Admin Dose 200 MLS/HR; Start 12/21/16 at 22:00 Lorazepam (Ativan) 0.5 mg Q6H PRN IV ANXIETY; Start 12/21/16 at 19:00 Ondansetron HCl (Zofran Tab) 4 mg Q6H PRN PO NAUSEA AND/OR VOMITING; Start 12/21 at 19:00 Nitroglycerin (Nitroglycerin (Sl Tab) 0.4 Mg) 1 tab Q5M PRN SL CHEST PAIN; Start 12/21/16 at 19:00 Acetaminophen (Tylenol Tab) 650 mg Q6H PRN PO PAIN LEVEL 1-3 OR FEVER; Start at 19:00 Acetaminophen (Tylenol Supp) 650 mg Q6H PRN [place] PAIN LEVEL 1-3 OR FEVER; Start 12/21/16 at 19:00 Enoxaparin Sodium (Lovenox) 30 mg DAILY SC Last administered on 12/25/16 10:03 ; Admin Dose 30 MG; Start 12/22/16 at 09:00 Ascorbic Acid (Vitamin C) 500 mg DAILY PO Last administered on 12/25/16 10:01 ; Admin Dose 500 MG; Start 12/21/16 at 19:30 Famotidine (Pepcid) 20 mg DAILY GTB Last administered on 12/25/16 10:01; Admin Dose 20 MG; Start 12/22/16 at 09:00 Insulin Glargine (Lantus) 12 unit QHS SC Last administered on 12/24/16 20:37; Admin Dose 12 UNIT; Start 12/21/16 at 21:00 Levetiracetam (Keppra Liquid) 500 mg BID GTB Last administered on 12/25/16 10: 00; Admin Dose 500 MG; Start 12/21/16 at 21:00 Metoclopramide HCl (Reglan Liq) 5 mg Q6 GTB Last administered on 12/25/16 13: 07; Admin Dose 5 MG; Start 12/22/16 at 00:00 Phenytoin (Dilantin Susp Cup) 300 mg DAILY GTB Last administered on 12/25/16 10:00; Admin Dose 300 MG; Start 12/22/16 at 09:00 Prochlorperazine (Compazine) 5 mg Q6 PRN GTB NAUSEA; Start 12/21/16 at 19:00 Zinc Sulfate (Zinc Sulfate) 220 mg DAILY GTB Last administered on 12/25/16 10: 01; Admin Dose 220 MG; Start 12/22/16 at 09:00 Lansoprazole (Prevacid) 30 mg DAILY@06 GTB Last administered on 12/25/16 06:34 ; Admin Dose 30 MG; Start 12/22/16 at 06:00 Multivit/Ca Carb/ B Cmplx/FA/Prenat (Lou-Mis) 1 tab DAILY PO Last administered on 12/25/16 10:00; Admin Dose 1 TAB; Start 12/22/16 at 09:00 Insulin Aspart (Novolog Insulin Pen) NOVOLOG *MILD* ALGORI... Q4 SC Last administered on 12/23/16 21:44; Admin Dose 1 UNIT; Start 12/21/16 at 21:00 Miscellaneous Information 1 ea NOTE XX ; Start 12/21/16 at 19:30 Glucose (Glutose) 15 gm Q15M PRN PO DECREASED GLUCOSE; Start 12/21/16 at 19:30 Glucose (Glutose) 22.5 gm Q15M PRN PO DECREASED GLUCOSE; Start 12/21/16 at 19:30 Dextrose (D50w Syringe) 25 ml Q15M PRN IV DECREASED GLUCOSE; Start 12/21/16 at 19:30 Dextrose (D50w Syringe) 50 ml Q15M PRN IV DECREASED GLUCOSE; Start 12/21/16 at 19:30 Glucagon (Glucagen) 1 mg Q15M PRN IM DECREASED GLUCOSE; Start 12/21/16 at 19:30 Glucose (Glutose) 15 gm Q15M PRN BUCCAL DECREASED GLUCOSE; Start 12/21/16 at 19: 30 Doxycycline Hyclate (Vibramycin) 100 mg BID PO Last administered on 12/25/16 10:01; Admin Dose 100 MG; Start 12/23/16 at 21:00 Propranolol HCl (Inderal) 40 mg TID GTB Last administered on 12/25/16 13:07; Admin Dose 40 MG; Start 12/23/16 at 21:00 Epoetin Alexander (Epogen (Esrd)) 10,000 units MoWeFr@17 SC ; Start 12/26/16 at 17:00 Assessment/Plan Additional Assessment/Plan IMP: 1. Sepsis 2. UTI 3. VDRF 4. CKD 5. Encephalopathy RECS: 1. Vent support 2. Abx 3. F/U cx's 4. BD's/CPT 5. TF's/free H2O TRISTEN CALDERÓN MD Dec 25, 2016 16:32
[2016-12-25] MEDS: INSULIN GLARGINE [LANtus] 3 ML PEN SC SCH (20:17)
[2016-12-26] VITALS (15 sets, daily range): BP systolic 127–142; BP diastolic 79–85; PULSE 85–90; RESP 16–20
[2016-12-26] MEDS: METOCLOPRAMIDE (1 MG/ML) 10 ML CUP GTB SCH ×2 (00:31→06:07)
[2016-12-26] MEDS: INSULIN ASPART [NOVOLOG] 3 ML PEN SC SCH ×3 (00:32→08:34)
[2016-12-26] MEDS: LANSOPRAZOLE 30 MG CAP GTB SCH (06:07)
[2016-12-26] MEDS: LEVOTHYROXINE 25 MCG TAB GTB SCH (06:07)
[2016-12-26] MEDS: PIPER-TAZO 3.375 GM IV (PMX) 100 ML IVPB SCH (06:07)
[2016-12-26 06:21] LABS: BASOPHILS % 0.3 % (0.0-2.0); EOSINOPHILS # 0.5 10^3/ul (0.0-0.5); EOSINOPHILS % 3.8 % (0.0-7.0); HEMATOCRIT 23.9 % (42.0-52.0); HEMOGLOBIN 8.3 g/dl (14.0-18.0); LYMPHOCYTES # 1.8 10^3/ul (0.8-2.9); LYMPHOCYTES % 14.2 % (15.0-51.0); MEAN CORPUSCULAR HEMOGLOBIN 32.3 pg (29.0-33.0); MEAN CORPUSCULAR HGB CONC 34.6 g/dl (32.0-37.0); MEAN CORPUSCULAR VOLUME 93.4 fl (82.0-101.0); MEAN PLATELET VOLUME 9.4 fl (7.4-10.4); MONOCYTES % 7.7 % (0.0-11.0); NEUTROPHIL # 9.2 10^3/ul (1.6-7.5); PLATELET COUNT 293 10^3/UL (140-440); RED BLOOD COUNT 2.56 10^6/ul (4.70-6.10); RED CELL DISTRIBUTION WIDTH 16.6 % (11.5-14.5); UNCORRECTED WBC 12.4 10^3/ul (4.8-10.8); WHITE BLOOD COUNT 12.4 10^3/ul (4.8-10.8)
[2016-12-26 06:31] LABS: CONDITION 1; LH ANALYZER COMMENTS 1
[2016-12-26 06:44] LABS: POTASSIUM 4.1 mmol/L (3.5-5.1)
[2016-12-26 06:47] LABS: CREATININE 2.08 mg/dl (0.61-1.24); PHOSPHORUS 4.9 mg/dl (2.5-4.9)
[2016-12-26 06:48] LABS: CALCIUM 9.9 mg/dl (8.4-10.2); MAGNESIUM 1.4 mg/dl (1.7-2.5)
[2016-12-26] MEDS ORDERED: MAGNESIUM SULFATE 2 GM/50 ML 50 ML IVPB ONE (09:00)
[2016-12-26] MEDS: DOXYCYCLINE 100 MG TAB PO SCH (09:54)
[2016-12-26] MEDS: MULTIVIT/CA CARB/B CMPLX/FA TAB PO SCH (09:54)
[2016-12-26] MEDS: FAMOTIDINE 20 MG TAB GTB SCH (09:54)
[2016-12-26] MEDS: ZINC SULFATE 220 MG CAP GTB SCH (09:54)
[2016-12-26] MEDS: PHENYTOIN (100 MG/4 ML) CUP GTB SCH (09:54)
[2016-12-26] MEDS: LEVETIRACETAM (100 MG/ML) 5ML CUP GTB SCH (09:54)
[2016-12-26] MEDS: ASCORBIC ACID 500 MG TAB PO SCH (09:54)
[2016-12-26] MEDS: PROPRANOLOL 40 MG TAB GTB SCH (09:55)
[2016-12-26] MEDS: ENOXAPARIN 30 MG/0.3 ML SYG SC SCH (09:58)
[2016-12-26] MEDS ORDERED: EPOETIN 10000 UNITS/1 ML INJ (ESRD) SC ONE (10:00)
--- NOTE | 2016-12-26 11:12 | PN ---
DATE: 12/26/2016 SUBJECTIVE: The patient is stable. No acute events overnight. No fevers, chills, nausea, vomiting . No shortness of breath. OBJECTIVE: VITAL SIGNS: Blood pressure 127/79, respirations 20, pulse 66, temperature 97.7. HEENT: Head is normocephalic. NECK: Supple. HEART: Regular rate. LUNGS: Showed diminished breath sounds at the base. ABDOMEN: Soft, nontender to palpation. No rebound or guarding. EXTREMITIES: Negative for clubbing, cyanosis. No edema. DERMATOLOGIC: No rashes. MUSCULOSKELETAL: No joint pain. NEUROLOGIC: No change in exam. MEDICATIONS: The patient's medications have been reviewed. LABORATORY DATA: Shows a white count 12.4, hemoglobin 8.3, hematocrit of 23.9, platelet count is 29 3. Sodium 140, potassium 4.1, chloride 105, BUN 44, creatinine 2.08, and magnesium is 1.4. ASSESSMENT AND PLAN: 1. Nonoliguric acute kidney injury on top of chronic kidney disease stage IV with a baseline creati nine around 2 mg/dL. Etiology of acute kidney injury secondary to hemodynamics . Patient's re nal function stabilized. Continue supportive care. Continue current treatment plan. Renally dose all meds. 2. Hypernatremia, improved. Achieve free water flushes. 3. Metabolic acidosis, resolved. 4. Anemia of chronic disease. Continue to monitor H and H levels. Continue Epogen. 5. Mineral bone disorder. Continue to monitor calcium and phosphate levels. No need for phosphate binders. 6. Sepsis secondary to urinary tract infection and bacteremia. The patient is clinically improving . Repeat cultures have been negative. Continue current antibiotic regimen. 7. Ventilatory dependent respiratory failure. Vent settings have been reviewed. ABGs reviewed. C ontinue to monitor. 8. Dysphagia, status post percutaneous endoscopic gastrostomy. Continue tube feeding. 9. Diabetes. Continue Accu-Cheks and sliding scale. 10. Tachycardia, multifactorial, improved. Continue medical management. 11. Hypertension. Continue with current blood pressure regimen. 12. 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 Continue to monitor. 13. Seizure disorder. Continue Keppra and Dilantin. 14. Hypothyroidism. Continue Synthroid. 15. Gastrointestinal and deep venous thrombosis prophylaxis. Continue Pepcid and Lovenox. DISPOSITION: Anticipate discharge back to nursing home facility within the next 24 hours. Dictated By: JESSE ARMSTRONG/RIO Conf#: [id number] DID#: [id number]
--- NOTE | 2016-12-26 11:53 | CONS ---
Date/Time of Note Date/Time of Note DATE: 12/26/16 TIME: 11:50 Assessment/Plan Assessment/Plan Additional Assessment/Plan Ventilator settings; AC of 16, tidal volume 600, PEEP of 5, 30% FiO2. Assessment recommendations; 1. Chronic respiratory failure due to anoxic encephalopathy. Ventilator dependent. 2. Sepsis currently on appropriate antibiotic regimen with clinical improvement. 3. chronic renal insufficiency. 4.. Diabetes mellitus. 5. Hypothyroidism. 6. Stable seizure disorder. Continue current supportive care. Consultation Date/Type/Reason Admit Date/Time Dec 21, 2016 at 16:40 Type of Consultation: Pulm 24 HR Interval Summary Free Text/Dictation Patient condition remains stable. Remains awake but unresponsive to any commands owing to underlying severe anoxic encephalopathy. Remains ventilator dependent. Patient remained hemodynamically stable. General examination; middle aged male on ventilator via tracheostomy currently in no distress. Exam/Review of Systems Vital Signs Vitals Vital Signs Date Time Temp Pulse Resp B/P Pulse Ox O2 Delivery O2 Flow Rate FiO2 12/26/16 11:02 89 16 100 30 12/26/16 08:02 97.7 127/79 Intake and Output 12/25/16 12/25/16 12/26/16 15:00 23:00 07:00 Intake Total 1340 ml 1340 ml Output Total 600 ml 1000 ml Balance 740 ml 340 ml Exam H EENT examination; supple neck, no JVD. No lymphadenopathy. Tracheostomy in place with clean insertion site. Pupils are midsize and reactive to light. Fair dentition. Chest examination; clear to auscultation. S1-S2 audible, no murmurs. Regular rhythm. Abdomen examination; soft, nondistended. G-tube in place. No organomegaly. Extremity examination; no peripheral edema. Pulses 1+ bilaterally. SKI GUIDE examination; patient is awake but does not follow any commands. Results Result Diagram: 12/26/16 0540 12/26/16 0540 Results 24 hrs Laboratory Tests Test 12/25/16 16:59 12/25/16 20:15 12/26/16 00:29 12/26/16 04:20 Bedside Glucose 119 115 116 116 Test 12/26/16 05:40 12/26/16 08:32 Anion Gap 16 Basophils # 0.0 Basophils % 0.3 Blood Morphology Comment Blood Urea Nitrogen 44 H Calcium Level 9.9 Carbon Dioxide Level 23 Chloride Level 105 Creatinine 2.08 H Eosinophils # 0.5 Eosinophils % 3.8 Glucose Level 103 Hematocrit 23.9 L Hemoglobin 8.3 L Lymphocytes # 1.8 Lymphocytes % 14.2 L Magnesium Level 1.4 L Mean Corpuscular Hemoglobin 32.3 Mean Corpuscular Hemoglobin Concent 34.6 Mean Corpuscular Volume 93.4 Mean Platelet Volume 9.4 Monocytes # 1.0 H Monocytes % 7.7 Neutrophils # 9.2 H Neutrophils % 74.0 Nucleated Red Blood Cells # 0.0 Nucleated Red Blood Cells % 0.0 Phosphorus Level 4.9 Platelet Count 293 Potassium Level 4.1 Red Blood Count 2.56 L Red Cell Distribution Width 16.6 H Sodium Level 140 White Blood Count 12.4 H Bedside Glucose 128 Medications Medications Current Medications Piperacillin Sod/ Tazobactam Sod (Zosyn 3.375gm/ 100 ml (Pmx)) 100 ml @ 200 mls /hr Q8 IVPB Last administered on 12/26/16 06:07; Admin Dose 200 MLS/HR; Start 12/21/16 at 22:00 Lorazepam (Ativan) 0.5 mg Q6H PRN IV ANXIETY; Start 12/21/16 at 19:00 Ondansetron HCl (Zofran Tab) 4 mg Q6H PRN PO NAUSEA AND/OR VOMITING; Start 12/21 at 19:00 Nitroglycerin (Nitroglycerin (Sl Tab) 0.4 Mg) 1 tab Q5M PRN SL CHEST PAIN; Start 12/21/16 at 19:00 Acetaminophen (Tylenol Tab) 650 mg Q6H PRN PO PAIN LEVEL 1-3 OR FEVER; Start at 19:00 Acetaminophen (Tylenol Supp) 650 mg Q6H PRN [place] PAIN LEVEL 1-3 OR FEVER; Start 12/21/16 at 19:00 Enoxaparin Sodium (Lovenox) 30 mg DAILY SC Last administered on 12/26/16 09:58 ; Admin Dose 30 MG; Start 12/22/16 at 09:00 Ascorbic Acid (Vitamin C) 500 mg DAILY PO Last administered on 12/26/16 09:54 ; Admin Dose 500 MG; Start 12/21/16 at 19:30 Famotidine (Pepcid) 20 mg DAILY GTB Last administered on 12/26/16 09:54; Admin Dose 20 MG; Start 12/22/16 at 09:00 Insulin Glargine (Lantus) 12 unit QHS SC Last administered on 12/25/16 20:17; Admin Dose 12 UNIT; Start 12/21/16 at 21:00 Levetiracetam (Keppra Liquid) 500 mg BID GTB Last administered on 12/26/16 09: 54; Admin Dose 500 MG; Start 12/21/16 at 21:00 Metoclopramide HCl (Reglan Liq) 5 mg Q6 GTB Last administered on 12/26/16 06: 07; Admin Dose 5 MG; Start 12/22/16 at 00:00 Phenytoin (Dilantin Susp Cup) 300 mg DAILY GTB Last administered on 12/26/16 09:54; Admin Dose 300 MG; Start 12/22/16 at 09:00 Prochlorperazine (Compazine) 5 mg Q6 PRN GTB NAUSEA; Start 12/21/16 at 19:00 Zinc Sulfate (Zinc Sulfate) 220 mg DAILY GTB Last administered on 12/26/16 09: 54; Admin Dose 220 MG; Start 12/22/16 at 09:00 Lansoprazole (Prevacid) 30 mg DAILY@06 GTB Last administered on 12/26/16 06:07 ; Admin Dose 30 MG; Start 12/22/16 at 06:00 Multivit/Ca Carb/ B Cmplx/FA/Prenat (Lou-Mis) 1 tab DAILY PO Last administered on 12/26/16 09:54; Admin Dose 1 TAB; Start 12/22/16 at 09:00 Insulin Aspart (Novolog Insulin Pen) NOVOLOG *MILD* ALGORI... Q4 SC Last administered on 12/23/16 21:44; Admin Dose 1 UNIT; Start 12/21/16 at 21:00 Miscellaneous Information 1 ea NOTE XX ; Start 12/21/16 at 19:30 Glucose (Glutose) 15 gm Q15M PRN PO DECREASED GLUCOSE; Start 12/21/16 at 19:30 Glucose (Glutose) 22.5 gm Q15M PRN PO DECREASED GLUCOSE; Start 12/21/16 at 19:30 Dextrose (D50w Syringe) 25 ml Q15M PRN IV DECREASED GLUCOSE; Start 12/21/16 at 19:30 Dextrose (D50w Syringe) 50 ml Q15M PRN IV DECREASED GLUCOSE; Start 12/21/16 at 19:30 Glucagon (Glucagen) 1 mg Q15M PRN IM DECREASED GLUCOSE; Start 12/21/16 at 19:30 Glucose (Glutose) 15 gm Q15M PRN BUCCAL DECREASED GLUCOSE; Start 12/21/16 at 19: 30 Doxycycline Hyclate (Vibramycin) 100 mg BID PO Last administered on 12/26/16 09:54; Admin Dose 100 MG; Start 12/23/16 at 21:00 Propranolol HCl (Inderal) 40 mg TID GTB Last administered on 12/26/16 09:55; Admin Dose 40 MG; Start 12/23/16 at 21:00 Epoetin Alexander (Epogen (Esrd)) 10,000 units MoWeFr@17 SC ; Start 12/28/16 at 17:00 STEVEN CUETO Dec 26, 2016 11:52
--- NOTE | 2016-12-26 12:41 | CONS ---
Date/Time of Note Date/Time of Note DATE: 12/26/16 TIME: 12:40 Assessment/Plan Assessment/Plan Chief Complaint/Hosp Course SUBJECTIVE: No acute events overnight. The patient is lying comfortably in bed. Afebrile. MICROBIOLOGY: Urine culture negative. Blood culture growing staph species. ANTIMICROBIALS: The patient is on: 1. Doxycycline. 2. Zosyn. PHYSICAL EXAMINATION: GENERAL: This is a fragile, chronically ill-appearing, middle-aged man who is lying comfortably in bed. HEENT: Head atraumatic, normocephalic. Sclerae anicteric. Buccal mucosa dry. NECK: Supple. Tracheostomy present. CHEST: Rise symmetrical. Breath sounds diminished. HEART: S1, S2. ABDOMEN: Soft. Bowel sounds present. ASSESSMENT: 1. Resolving sepsis. 2. Urinary tract infection as per urinalysis. 3. Coagulase-negative staph bacteremia, rule out contaminant. 4. Chronic encephalopathy and persistent vegetative state. 5. Acute on chronic kidney disease. PLAN: Stable, no fevers, will dc abx and observe [facility] staff Problems: Consultation Date/Type/Reason Admit Date/Time Dec 21, 2016 at 16:40 Initial Consult Date Type of Consultation: ID Exam/Review of Systems Vital Signs Vitals Vital Signs Date Time Temp Pulse Resp B/P Pulse Ox O2 Delivery O2 Flow Rate FiO2 12/26/16 12:19 97.7 88 20 142/85 100 12/26/16 11:02 30 Intake and Output 12/25/16 12/25/16 12/26/16 15:00 23:00 07:00 Intake Total 1340 ml 1340 ml Output Total 600 ml 1000 ml Balance 740 ml 340 ml Results Result Diagram: 12/26/16 0540 12/26/16 0540 Results 24 hrs Laboratory Tests Test 12/25/16 16:59 12/25/16 20:15 12/26/16 00:29 12/26/16 04:20 Bedside Glucose 119 115 116 116 Test 12/26/16 05:40 12/26/16 08:32 Anion Gap 16 Basophils # 0.0 Basophils % 0.3 Blood Morphology Comment Blood Urea Nitrogen 44 H Calcium Level 9.9 Carbon Dioxide Level 23 Chloride Level 105 Creatinine 2.08 H Eosinophils # 0.5 Eosinophils % 3.8 Glucose Level 103 Hematocrit 23.9 L Hemoglobin 8.3 L Lymphocytes # 1.8 Lymphocytes % 14.2 L Magnesium Level 1.4 L Mean Corpuscular Hemoglobin 32.3 Mean Corpuscular Hemoglobin Concent 34.6 Mean Corpuscular Volume 93.4 Mean Platelet Volume 9.4 Monocytes # 1.0 H Monocytes % 7.7 Neutrophils # 9.2 H Neutrophils % 74.0 Nucleated Red Blood Cells # 0.0 Nucleated Red Blood Cells % 0.0 Phosphorus Level 4.9 Platelet Count 293 Potassium Level 4.1 Red Blood Count 2.56 L Red Cell Distribution Width 16.6 H Sodium Level 140 White Blood Count 12.4 H Bedside Glucose 128 Medications Medications Current Medications Piperacillin Sod/ Tazobactam Sod (Zosyn 3.375gm/ 100 ml (Pmx)) 100 ml @ 200 mls /hr Q8 IVPB Last administered on 12/26/16 06:07; Admin Dose 200 MLS/HR; Start 12/21/16 at 22:00 Lorazepam (Ativan) 0.5 mg Q6H PRN IV ANXIETY; Start 12/21/16 at 19:00 Ondansetron HCl (Zofran Tab) 4 mg Q6H PRN PO NAUSEA AND/OR VOMITING; Start 12/21 at 19:00 Nitroglycerin (Nitroglycerin (Sl Tab) 0.4 Mg) 1 tab Q5M PRN SL CHEST PAIN; Start 12/21/16 at 19:00 Acetaminophen (Tylenol Tab) 650 mg Q6H PRN PO PAIN LEVEL 1-3 OR FEVER; Start at 19:00 Acetaminophen (Tylenol Supp) 650 mg Q6H PRN UT PAIN LEVEL 1-3 OR FEVER; Start 12/21/16 at 19:00 Enoxaparin Sodium (Lovenox) 30 mg DAILY SC Last administered on 12/26/16 09:58 ; Admin Dose 30 MG; Start 12/22/16 at 09:00 Ascorbic Acid (Vitamin C) 500 mg DAILY PO Last administered on 12/26/16 09:54 ; Admin Dose 500 MG; Start 12/21/16 at 19:30 Famotidine (Pepcid) 20 mg DAILY GTB Last administered on 12/26/16 09:54; Admin Dose 20 MG; Start 12/22/16 at 09:00 Insulin Glargine (Lantus) 12 unit QHS SC Last administered on 12/25/16 20:17; Admin Dose 12 UNIT; Start 12/21/16 at 21:00 Levetiracetam (Keppra Liquid) 500 mg BID GTB Last administered on 12/26/16 09: 54; Admin Dose 500 MG; Start 12/21/16 at 21:00 Metoclopramide HCl (Reglan Liq) 5 mg Q6 GTB Last administered on 12/26/16 06: 07; Admin Dose 5 MG; Start 12/22/16 at 00:00 Phenytoin (Dilantin Susp Cup) 300 mg DAILY GTB Last administered on 12/26/16 09:54; Admin Dose 300 MG; Start 12/22/16 at 09:00 Prochlorperazine (Compazine) 5 mg Q6 PRN GTB NAUSEA; Start 12/21/16 at 19:00 Zinc Sulfate (Zinc Sulfate) 220 mg DAILY GTB Last administered on 12/26/16 09: 54; Admin Dose 220 MG; Start 12/22/16 at 09:00 Lansoprazole (Prevacid) 30 mg DAILY@06 GTB Last administered on 12/26/16 06:07 ; Admin Dose 30 MG; Start 12/22/16 at 06:00 Multivit/Ca Carb/ B Cmplx/FA/Prenat (Lou-Mis) 1 tab DAILY PO Last administered on 12/26/16 09:54; Admin Dose 1 TAB; Start 12/22/16 at 09:00 Insulin Aspart (Novolog Insulin Pen) NOVOLOG *MILD* ALGORI... Q4 SC Last administered on 12/23/16 21:44; Admin Dose 1 UNIT; Start 12/21/16 at 21:00 Miscellaneous Information 1 ea NOTE XX ; Start 12/21/16 at 19:30 Glucose (Glutose) 15 gm Q15M PRN PO DECREASED GLUCOSE; Start 12/21/16 at 19:30 Glucose (Glutose) 22.5 gm Q15M PRN PO DECREASED GLUCOSE; Start 12/21/16 at 19:30 Dextrose (D50w Syringe) 25 ml Q15M PRN IV DECREASED GLUCOSE; Start 12/21/16 at 19:30 Dextrose (D50w Syringe) 50 ml Q15M PRN IV DECREASED GLUCOSE; Start 12/21/16 at 19:30 Glucagon (Glucagen) 1 mg Q15M PRN IM DECREASED GLUCOSE; Start 12/21/16 at 19:30 Glucose (Glutose) 15 gm Q15M PRN BUCCAL DECREASED GLUCOSE; Start 12/21/16 at 19: 30 Doxycycline Hyclate (Vibramycin) 100 mg BID PO Last administered on 12/26/16 09:54; Admin Dose 100 MG; Start 12/23/16 at 21:00 Propranolol HCl (Inderal) 40 mg TID GTB Last administered on 12/26/16 09:55; Admin Dose 40 MG; Start 12/23/16 at 21:00 Epoetin Alexander (Epogen (Esrd)) 10,000 units MoWeFr@17 SC ; Start 12/28/16 at 17:00 KODAK CORTEZ NP Dec 26, 2016 12:41
[2016-12-28] MEDS ORDERED: EPOETIN 10000 UNITS/1 ML INJ (ESRD) SC SCH (17:00)
--- NOTE | 2016-12-29 13:18 | DS ---
DATE OF ADMISSION: 12/21/2016 DATE OF DISCHARGE: 12/26/2016 HOSPITAL COURSE: This is a 61-year-old male with a past medical history of ventilator-dependent res piratory failure, a history of dysphagia, status post PEG, a history of anoxic brain injury, chronic encephalopathy, a history of chronic kidney disease stage IV, previously dialysis dependent, a hist ory of seizure disorder, diabetes, dyslipidemia, and hypothyroidism who presented to [facility] from his subacute facility due to worsening renal function. The patient upon arrival in the emergency room was noted to have a BUN of 104, creatinine 2.2. He was subsequently admitted to med/surg telemetry for evaluation of his acute kidney injury. The patient was also noted to have a fever in the emergency room, with possible sepsis. In terms of the patient's infection, the pete ent was diagnosed with a urinary tract infection. He was seen by infectious disease, Dr. Rey, an d placed on broad-spectrum antibiotics. The patient's blood culture also grew out Staph species. T he patient clinically responded to IV antibiotics, as his repeat blood cultures were negative. The patient will be scheduled to complete a 14-day course of IV antibiotics. In terms of the patient's acute kidney injury, etiology was secondary to hemodynamics. The patient's renal function improved during the hospital course with supportive care and IV hydration. His current renal function has st abilized. Final creatinine of 2.0 mg/dL. The patient's other medical problems including hyponatrem ia, anemia, metabolic acidosis, and diabetes were stable during the hospital course. The patient wa s also seen by the latin teacher, Dr. Ivey, for his underlying vent management for his respirator y failure. That was stable during the hospital course. The patient was also seen by marine driller, Dr. Nguyen, due to persistent tachycardia, which improved with adjustment of medications. Currently at this time the patient will be discharged back to a subacute facility. At the time of discharge the patient is stable, in no acute distress. FINAL DIAGNOSES: 1. Nonoliguric acute kidney injury. 2. Chronic kidney disease stage IV. 2. Sepsis secondary to a urinary tract infection. 3. Mineral bone disorder. 4. Anemia. 5. Metabolic acidosis. 6. Hyponatremia. 7. Ventilatory-dependent respiratory failure. 8. Dysphagia. 9. Diabetes. 10. Tachycardia. 11. Hypertension. 12. Chronic encephalopathy 13. Seizure disorder. 14. Hypothyroidism. FINAL MEDICATIONS: See reconciliation list. At the time of discharge, the patient is stable, in no acute distress. Please note, I spent over 30 minutes of time preparing the patient's discharge. Dictated By: JESSE ARMSTRONG/RIO Conf#: [id number] DID#: [id number]
== END 2016-12-26 14:40 | DRG 870 ==
LOC: E/R 11:16 → TEL 16:40 → UNDOADMIN 22:06
PROVIDERS: ADMIT Family Medicine; ATTEND Family Medicine
PROC: 5A1955Z Respiratory Ventilation, Greater than 96 Consecutive Hours (ICD-10-PCS; principal; 2016-12-21)
DX: A41.2 Sepsis due to unspecified staphylococcus (principal); G93.1 Anoxic brain damage, not elsewhere classified; R40.3 Persistent vegetative state; Z99.11 Dependence on respirator [ventilator] status; N17.9 Acute kidney failure, unspecified; J96.10 Chronic respiratory failure, unspecified whether with hypoxia or hypercapnia; N18.4 Chronic kidney disease, stage 4 (severe); E87.0 Hyperosmolality and hypernatremia; N39.0 Urinary tract infection, site not specified; R65.20 Severe sepsis without septic shock; E86.0 Dehydration; D63.8 Anemia in other chronic diseases classified elsewhere; E83.52 Hypercalcemia; Z93.1 Gastrostomy status; G40.909 Epilepsy, unspecified, not intractable, without status epilepticus; I12.9 Hypertensive chronic kidney disease with stage 1 through stage 4 chronic kidney disease, or unspecified chronic kidney disease; Z87.891 Personal history of nicotine dependence; E11.9 Type 2 diabetes mellitus without complications; Z79.84 Long term (current) use of oral hypoglycemic drugs; R13.10 Dysphagia, unspecified
CPT/HCPCS: 36415; 36600; 71010; 76775; 80048; 80053; 80307; 81001; 81003; 82043; 82270; 82728; 82803; 82962; 83540; 83605; 83735; 84100; 84134; 84155; 84300; 84484; 85014; 85018; 85025; 85610; 85730; 87040; 87081; 87086; 90686; 93005; 94002; 94003; 96361; 96374; J0696; J0885; J0886; J1650; J1815; J2543; J3370; J3475; J3480; J7030; J7040; J7050